=== PATIENT | female | born 1935 | race Caucasian/White ===

== ENCOUNTER 2023-06-10 14:43 | Observation (INO) | payer OTHER, SELFPAY ==
[2023-06-10] VITALS (29 sets, daily range): BP systolic 119–172; BP diastolic 53–86; PULSE 38–84; RESP 12–27; TEMP 35.8–36.4; O2SAT 92–98; BMI 37.2
--- NOTE | 2023-06-10 14:56 | DI.RAD.S_ITS ---
PROCEDURE: XR CHEST 1V INDICATIONS: chest pain TECHNIQUE: One view of the chest was acquired. COMPARISON: None. FINDINGS: Surgical changes and devices: None. Lungs and pleura: Retrocardiac opacity. No pleural effusions or pneumothorax. Mediastinum: Soft tissue prominence within the superior left mediastinum near the aortic pulmonary window. Heart size is normal. Bones and chest wall: No suspicious bony lesions. Overlying soft tissues appear unremarkable. IMPRESSION: 1. Retrocardiac opacity may reflect hiatal hernia with infection not excluded. 2. Prominence of the left hilar structures is concerning for mass versus lymphadenopathy. Consider CT. Dictated by: Dougie Sandoval M.D. on 06/10/2023 at 14:30 Approved by: Dougie Sandoval M.D. on 06/10/2023 at 14:32
[2023-06-10 15:14] LABS: Add Manual Diff / Slide Review NO; Basophils Absolute Auto 100 /uL (0-100); Basophils Percent Auto 0.9 % (0-2); Eosinophils Absolute Auto 200 /uL (0-450); Eosinophils Percent Auto 2.5 % (2-4); Hematocrit 33.6 % (36-46); Hemoglobin 11.1 g/dL (12.0-16.0); Lymphocytes Absolute Auto 1800 /uL (1100-4500); Lymphocytes Percent Auto 28.7 % (25-40); Mean Corpuscular Hemoglobin 31.9 PG (26-34); Mean Corpuscular Volume 96.7 fL (80-100); Monocytes Absolute Auto 600 /uL (0-900); Monocytes Percent Auto 10.3 % (3-14); Neutrophils Absolute Auto 3600 /uL (1500-7000); Neutrophils Percent Auto 57.6 % (50-75); Platelet Count 120 X10^3/uL (150-400); Red Blood Cell Count 3.48 X10^6/uL (4.0-5.2); Red Cell Distribution Width 16.3 % (11.6-14.8); White Blood Cell Count 6.3 X10^3/uL (4.5-11.0)
[2023-06-10 15:22] LABS: INR 1.1 (0.9-1.3); Prothrombin Time 12.4 SECONDS (10.1-12.7)
[2023-06-10 15:25] LABS: PTT Partial Thromboplastin Tim 45 SECONDS (26-36)
[2023-06-10 15:28] LABS: Alanine Aminotransferase 45 IU/L (<35); Albumin 3.8 g/dL (3.5-5.0); Albumin Globulin Ratio 1.1 (1.0-2.8); Alkaline Phosphatase 159 U/L (38-126); Aspartate Aminotransferase 49 IU/L (14-36); BUN Creatinine Ratio 42.5 (6-22); Bilirubin Total 0.3 mg/dL (0.2-1.3); Blood Urea Nitrogen 51 mg/dL (7-17); Carbon Dioxide 35 mmol/L (22-32); Chloride 99 mmol/L (98-107); Creatine Kinase 36 U/L (30-135); Estimated Glomerular Filt Rate 44 mL/min (>60); Globulin 3.4 g/dL (1.7-4.1); Glucose 115 mg/dL (80-110); HEMOLYSIS < 15 (0-50); Lipase 91 U/L (23-300); Magnesium 2.1 mg/dL (1.6-2.3); Potassium 3.9 mmol/L (3.4-5.1); Sodium 141 mmol/L (137-145); Total Protein 7.2 g/dL (6.3-8.2)
[2023-06-10 15:42] LABS: Troponin I < 0.012 ng/mL (0.01-0.034)
--- NOTE | 2023-06-10 15:52 | PC.NURSE ---
Pt reports sudden onset of left rib pain, which has resolved. Provider to be made aware.
--- NOTE | 2023-06-10 18:20 | ED.DIZZY ---
HPI - Dizziness General Chief Complaint: Dizziness Stated Complaint: vertigo Time Seen by Provider: 06/10/23 17:46 Source: patient and EMS Mode of arrival: EMS History of Present Illness HPI Narrative: Patient 87-year-old female history of hypertension, hyperlipidemia presenting today with dizziness. Some reports that she is been dizzy for awhile she is not passed out. She has chronic lower extremity edema she is on furosemide. She does not ambulate but gets around by wheelchair she can stand. Does not sound like she has passed out but is feeling weak. No numbness tingling or weakness she denies any chest pain or palpitations. She does take atenolol she is noted to be bradycardic upon arrival with heart rate in the low 40s. She denies any fever or chills. Son reports not feeling well for about the last week he reports that she is typically able to stand transfer and do some things. He is away an [id number] spoke to her on the phone today thought that she was having some slurring of speech. He is coming home, Related Data Home Medications Medication Instructions Recorded Confirmed allopurinol 100 mg tablet 100 mg PO DAILY 06/10/23 06/10/23 aspirin 81 mg capsule 81 mg PO DAILY 06/10/23 06/10/23 atenolol 100 mg tablet 100 mg PO DAILY 06/10/23 06/10/23 atorvastatin 40 mg tablet 40 mg PO DAILY 06/10/23 06/10/23 furosemide 20 mg tablet 20 mg PO DAILY 06/10/23 06/10/23 furosemide 40 mg tablet 40 mg PO DAILY 06/10/23 06/10/23 Allergies Allergy/AdvReac Type Severity Reaction Status Date / Time colchicine Allergy Verified 06/10/23 15:02 NSAIDS (Non-Steroidal Allergy Verified 06/10/23 15:02 Anti-Inflamma Patient History Social History household members: other Smoking Status: Never smoker alcohol intake: never Smoking Status: Never smoker alcohol intake frequency: 0-2 drinks per day Substance Use Type: does not use Exam Initial Vital Signs Initial Vital Signs: Vital Signs Pulse Rate 50 L 06/10/23 14:49 Pulse Oximetry 96 06/10/23 14:49 GENERAL: Alert pleasant 87-year-old female HEENT: Head atraumatic,EOMI, pupils reactive, face symmetric, moist mucous membranes CARDIOVASCULAR: Regular rate and rhythm without murmurs, rubs or gallops. RESPIRATORY: Breath sounds equal bilaterally, no wheezes rales or rhonchi. ABDOMEN: Soft, nontender. Normoactive bowel sounds all 4 quadrants. No guarding or rebound. EXTREMITIES: Normal range of motion, no clubbing. Chronic lower extremity edema with lymphedema minimal erythema NEUROLOGICAL: Alert and oriented x4.Normal gait and speech. Cranial nerves II through XII grossly intact. Good [id number], good [id number], strength equal bilaterally, no dysarthria or aphasia, sensation in tact to soft touch bilaterally, no visual changes, no facial droop SKIN: Warm, dry, no laceration, no petechiae, no rashes or lesions. Scores NIH Stroke Scale Level of Conciousness: Alert, keenly responsive Ask month/age: Answers both questions correctly. Open/close eyes, close hand: Performs both tasks correctly Best gaze horizontal: Normal Visual brambila: No visual loss Facial palsy: Normal symetrical movement Left arm drift: No drift for full 10 sec Right arm drift: No drift for full 10 sec Left leg drift: No drift for full 5 sec Right leg drift: No drift for full 5 sec Limb ataxia: Absent Sensory on face/arms/legs: Normal, no sensory loss Best language: No aphasia, normal Dysarthria: Normal Extinction or inattention: No abnormality Total NIH Stroke scale score: 0 Course Orders Ordered: ED Orders 06/10/23 18:34 CT chest w con Stat CT head/brain wo con Stat 06/10/23 21:10 Education, smoking cessation ONGOING 06/10/23 21:13 Consult to Discharge Planning Routine 06/11/23 19:00 Basic Metabolic Panel DAILY Magnesium DAILY 06/12/23 19:00 Basic Metabolic Panel DAILY Magnesium DAILY 06/13/23 19:00 Basic Metabolic Panel DAILY Magnesium DAILY Acetaminophen (Acetaminophen 325 Mg Tablet) 650 mg PO Q6H PRN PRN Reason: Fever/Mild Pain (1-3) Albuterol (Albuterol 2.5 Mg/3 Ml Neb (Adult)) 2.5 mg INH [id number] PRN PRN Reason: Dyspnea Allopurinol (Allopurinol 100 Mg Tablet) 100 mg PO DAILY [facility] Aspirin (Aspirin Ec 81 Mg Tablet) 81 mg PO DAILY [facility] Atorvastatin Calcium (Atorvastatin 20 Mg Tablet) 40 mg PO DAILY [facility] Bisacodyl (Bisacodyl 5 Mg Tablet) 10 mg PO DAILY PRN PRN Reason: Constipation Furosemide (Furosemide 20 Mg Tablet) 20 mg PO DAILY [facility] Hydralazine HCl (Hydralazine 25 Mg Tablet) 25 mg PO Q6HR PRN PRN Reason: Hypertension Naloxone HCl (Naloxone 0.4 Mg/Ml Vial) 0.2 mg IV Q2MIN PRN PRN Reason: Opiate Reversal Nitroglycerin (Nitroglycerin 0.4 Mg Sl Tab) 0.4 mg SL [id number] PRN PRN Reason: Chest Pain Ondansetron HCl (Ondansetron 4 Mg/2 Ml Inj) 4 mg IV Q8HR PRN PRN Reason: Nausea And Vomiting Discontinued Medications Aspirin (Aspirin 81 Mg Chew Tab) 324 mg PO NOW ONE Stop: 06/10/23 14:57 Last Admin: 06/10/23 15:21 Dose: Not Given Documented By: SB Vital Signs Vital signs: Vital Signs - 8 hr 06/10/23 17:30 06/10/23 17:31 06/10/23 17:31 Pulse Rate 84 43 L Respiratory Rate 19 Blood Pressure 141/66 H Pulse Oximetry 95 96 Oxygen Delivery Method Room Air 06/10/23 18:00 06/10/23 18:01 06/10/23 18:01 Pulse Rate 47 L 38 L Respiratory Rate 22 18 Blood Pressure 151/65 H Pulse Oximetry 96 95 Oxygen Delivery Method 06/10/23 18:30 06/10/23 18:58 06/10/23 18:58 Pulse Rate 52 L 47 L Respiratory Rate 20 Blood Pressure 119/59 L Pulse Oximetry 94 92 Oxygen Delivery Method 06/10/23 19:00 06/10/23 19:01 06/10/23 19:01 Pulse Rate 44 L 41 L Respiratory Rate Blood Pressure 136/62 Pulse Oximetry 94 92 Oxygen Delivery Method Room Air 06/10/23 19:44 06/10/23 19:45 06/10/23 19:45 Pulse Rate 52 L 51 L Respiratory Rate Blood Pressure 120/72 Pulse Oximetry 96 95 Oxygen Delivery Method 06/10/23 20:00 06/10/23 20:01 06/10/23 20:01 Pulse Rate 53 L 53 L Respiratory Rate Blood Pressure 134/73 Pulse Oximetry 94 92 Oxygen Delivery Method 06/10/23 20:30 06/10/23 20:30 06/10/23 21:00 Pulse Rate 46 L 49 L Respiratory Rate 18 Blood Pressure 135/63 Pulse Oximetry 92 94 Oxygen Delivery Method 06/10/23 21:01 06/10/23 21:01 Pulse Rate 47 L Respiratory Rate Blood Pressure 172/69 H Pulse Oximetry 93 Oxygen Delivery Method Room Air MDM - Dizziness Lab Data 06/10/23 15:05 06/10/23 15:05 Labs: Lab Results 06/10/23 Range/Units 15:05 WBC 6.3 (4.5-11.0) X10^3/uL RBC 3.48 L (4.0-5.2) X10^6/uL Hgb 11.1 L (12.0-16.0) g/dL Hct 33.6 L (36-46) % MCV 96.7 (80-100) fL MCH 31.9 (26-34) PG MCHC 33.0 (30-36) % RDW 16.3 H (11.6-14.8) % Plt Count 120 L (150-400) X10^3/uL Neut % (Auto) 57.6 (50-75) % Lymph % (Auto) 28.7 (25-40) % [place] % (Auto) 10.3 (3-14) % Eos % (Auto) 2.5 (2-4) % Baso % (Auto) 0.9 (0-2) % Neut # (Auto) 3600 (7423-9285) /uL Lymph # (Auto) 1800 (4116-7686) /uL [place] # (Auto) 600 (0-900) /uL Eos # (Auto) 200 (0-450) /uL Baso # (Auto) 100 (0-100) /uL PT 12.4 (10.1-12.7) SECONDS INR 1.1 (0.9-1.3) APTT 45 H (26-36) SECONDS Sodium 141 (137-145) mmol/L Potassium 3.9 (3.4-5.1) mmol/L Chloride 99 (98-107) mmol/L Carbon Dioxide 35 H (22-32) mmol/L BUN 51 H (7-17) mg/dL Creatinine 1.20 H (0.52-1.04) mg/dL Estimated GFR 44 L (>60) mL/min BUN/Creatinine Ratio 42.5 H (6-22) Glucose 115 H (80-110) mg/dL Calcium 10.0 (8.4-10.2) mg/dL Magnesium 2.1 (1.6-2.3) mg/dL Total Bilirubin 0.3 (0.2-1.3) mg/dL AST 49 H (14-36) IU/L ALT 45 H (<35) IU/L Alkaline Phosphatase 159 H (38-126) U/L Total Creatine Kinase 36 (30-135) U/L Troponin I < 0.012 (0.01-0.034) ng/mL NT-Pro-B Natriuret Pep 279 (<450) pg/mL Total Protein 7.2 (6.3-8.2) g/dL Albumin 3.8 (3.5-5.0) g/dL Globulin 3.4 (1.7-4.1) g/dL Albumin/Globulin Ratio 1.1 (1.0-2.8) Lipase 91 (23-300) U/L Imaging Data Chest x-ray: Radiologist's Impression: PROCEDURE: XR CHEST 1V INDICATIONS: chest pain TECHNIQUE: One view of the chest was acquired. COMPARISON: None. FINDINGS: Surgical changes and devices: None. Lungs and pleura: Retrocardiac opacity. No pleural effusions or pneumothorax. Mediastinum: Soft tissue prominence within the superior left mediastinum near the aortic pulmonary window. Heart size is normal. Bones and chest wall: No suspicious bony lesions. Overlying soft tissues appear unremarkable. IMPRESSION: 1. Retrocardiac opacity may reflect hiatal hernia with infection not excluded. 2. Prominence of the left hilar structures is concerning for mass versus lymphadenopathy. Consider CT. Dictated by: Dougie Sandoval M.D. on 06/10/2023 at 14:30 CT scan - head: Radiologist's Impression: PROCEDURE: CT HEAD/BRAIN WO CON INDICATIONS: dizzy TECHNIQUE: Noncontrast 4.5 mm thick angled axial sections acquired from the foramen magnum to the vertex, with coronal and sagittal reformats. For radiation dose reduction, the following was used: automated exposure control, adjustment of mA and/or kV according to patient size. COMPARISON: None. FINDINGS: Image quality: Excellent. CSF spaces: Basal cisterns are patent. No extra-axial fluid collections. The ventricles are symmetric in size and shape. Brain: No intracranial bleeds or masses. There is cerebral volume loss for age, with resultant ventricular and sulcal prominence. There are periventricular and deep white matter chronic small vessel ischemic changes. There is intracranial internal carotid artery atherosclerosis. Remote right lacunar infarct. Skull and face: Calvarium and visualized facial bones appear intact, without suspicious lesions. Sinuses: Visualized sinuses and mastoids are clear. IMPRESSION: No acute intracranial pathology. Dictated by: Ramirez Orta M.D. on 06/10/2023 at 20:00 CT scan - chest: Radiologist's Impression: PROCEDURE: CT CHEST W CON INDICATIONS: Questionable mass with dizziness TECHNIQUE: After the administration of intravenous contrast, 5 mm thick sections acquired from the pulmonary apices to the posterior costophrenic angles. 1 mm axial lung, 5 mm thick coronal and sagittal reformats and 7 mm axial MIP were acquired. For radiation dose reduction, the following was used: automated exposure control, adjustment of mA and/or kV according to patient size. COMPARISON: [facility], CR, XR CHEST 1 VIEW, 12/01/2020, 21:16. [facility], CR, XR CHEST 1V, 06/10/2023, 15:06. FINDINGS: Image quality: Excellent. Lungs and pleura: No acute air space opacities. There is a 0.9 cm subpleural density in the low, likely atelectasis. No pleural effusions or pneumothorax. Central and peripheral airways are patent and normal in caliber. Mediastinum: The central pulmonary outflow tract is enlarged measuring 4.1 cm. No left hilar mass. Heart size is normal. No pericardial effusion. There is moderate coronary artery atherosclerosis. Note is made of mitral annular calcification. No mediastinal or hilar adenopathy by size criteria. Thoracic aorta and central pulmonary arteries are normal in size. Esophagus is normal in caliber. There is a moderate to large sized hiatal hernia. Bones and chest wall: No suspicious bony lesions. No vertebral body compression fractures. No axillary or supraclavicular adenopathy by size criteria. Thyroid gland is unremarkable . Abdomen: A 1.3 cm hypodense nodule is noted in the anterior aspect of the segment IV. IMPRESSION: 1. No left hilar mass. 2. Enlargement of pulmonary outflow tract is likely secondary to left hilar prominence seen on chest x-ray. The findings suggest pulmonary hypertension. 3. Moderate coronary artery atherosclerosis. 4. A 3.9 cm subpleural nodule in lingula, most likely caused by atelectasis. Consider a short-term follow-up CT in 3 months. 5. A sbtasgki-le-tcgga sized hiatal hernia. 6. A 1.3 cm hypodense nodule in segment IV of liver, probably a cyst. Dictated by: Orlando Flores M.D. on 06/10/2023 at 20:00 ECG Data Interpretation: Sinus bradycardia rate 44 CA interval 256 QRS [address] changes Q-wave noted in lead 3 no priors to compare MDM Narrative Medical decision making narrative: Patient 87-year-old female presenting with ongoing dizziness to be slightly bradycardic with PVCs no focal deficits. She is on atenolol which could be causing some bradycardia she is a first-degree AV block without prior EKGs. Chest x-ray does show some abnormality with questionable mass versus lymphadenopathy. She has no focal deficits but due to ongoing vertigo and have CT ordered. Blood work renal function is abnormal with a creatinine of 1.2 BUN 51 CO2 35. Son reports stage 4 kidney disease unclear what baseline labs are. Head CT negative for mass or hemorrhage. CT chest shows a hiatal hernia Patient does have episodes or heart rate does drop into the 30s however her heart rate is pretty consistently in the low 40s which is likely contributing to her vertigo. She has symptomatic bradycardia likely secondary to beta-radha. Discussed case with hospitalist Dr. Velez in regards to observation which he kindly accepts Discharge Plan Departure Patient Disposition: Admitted as Observation Clinical Impression: Symptomatic bradycardia Admit Date/Time: 06/10/23 21:19 Admit Provider: Toby Velez
--- NOTE | 2023-06-10 18:22 | PC.NURSE ---
This RN talks to son, Adrian, with patient permission. Per son mother does not have a history of dizziness, except for in the past few weeks. Per son they have noticed some recent decline in memory. Pt normally uses scooter to get around due to bilateral edema of legs. Per son patient takes 40mg furosemide BID.
--- NOTE | 2023-06-10 18:34 | DI.CT.S_ITS ---
PROCEDURE: CT CHEST W CON INDICATIONS: Questionable mass with dizziness TECHNIQUE: After the administration of intravenous contrast, 5 mm thick sections acquired from the pulmonary apices to the posterior costophrenic angles. 1 mm axial lung, 5 mm thick coronal and sagittal reformats and 7 mm axial MIP were acquired. For radiation dose reduction, the following was used: automated exposure control, adjustment of mA and/or kV according to patient size. COMPARISON: [facility], CR, XR CHEST 1 VIEW, 12/01/2020, 21:16. [facility], CR, XR CHEST 1V, 06/10/2023, 15:06. FINDINGS: Image quality: Excellent. Lungs and pleura: No acute air space opacities. There is a 0.9 cm subpleural density in the low, likely atelectasis. No pleural effusions or pneumothorax. Central and peripheral airways are patent and normal in caliber. Mediastinum: The central pulmonary outflow tract is enlarged measuring 4.1 cm. No left hilar mass. Heart size is normal. No pericardial effusion. There is moderate coronary artery atherosclerosis. Note is made of mitral annular calcification. No mediastinal or hilar adenopathy by size criteria. Thoracic aorta and central pulmonary arteries are normal in size. Esophagus is normal in caliber. There is a moderate to large sized hiatal hernia. Bones and chest wall: No suspicious bony lesions. No vertebral body compression fractures. No axillary or supraclavicular adenopathy by size criteria. Thyroid gland is unremarkable . Abdomen: A 1.3 cm hypodense nodule is noted in the anterior aspect of the segment IV. IMPRESSION: 1. No left hilar mass. 2. Enlargement of pulmonary outflow tract is likely secondary to left hilar prominence seen on chest x-ray. The findings suggest pulmonary hypertension. 3. Moderate coronary artery atherosclerosis. 4. A 3.9 cm subpleural nodule in lingula, most likely caused by atelectasis. Consider a short-term follow-up CT in 3 months. 5. A ukqgzkln-[id number] sized hiatal hernia. 6. A 1.3 cm hypodense nodule in segment IV of liver, probably a cyst. Dictated by: Orlando Flores M.D. on 06/10/2023 at 20:00 Approved by: Orlando Flores M.D. on 06/10/2023 at 20:08
--- NOTE | 2023-06-10 18:34 | DI.CT.S_ITS ---
PROCEDURE: CT HEAD/BRAIN WO CON INDICATIONS: dizzy TECHNIQUE: Noncontrast 4.5 mm thick angled axial sections acquired from the foramen magnum to the vertex, with coronal and sagittal reformats. For radiation dose reduction, the following was used: automated exposure control, adjustment of mA and/or kV according to patient size. COMPARISON: None. FINDINGS: Image quality: Excellent. CSF spaces: Basal cisterns are patent. No extra-axial fluid collections. The ventricles are symmetric in size and shape. Brain: No intracranial bleeds or masses. There is cerebral volume loss for age, with resultant ventricular and sulcal prominence. There are periventricular and deep white matter chronic small vessel ischemic changes. There is intracranial internal carotid artery atherosclerosis. Remote right lacunar infarct. Skull and face: Calvarium and visualized facial bones appear intact, without suspicious lesions. Sinuses: Visualized sinuses and mastoids are clear. IMPRESSION: No acute intracranial pathology. Dictated by: Ramirez Orta M.D. on 06/10/2023 at 20:00 Approved by: Ramirez Orta M.D. on 06/10/2023 at 20:01
[2023-06-10 18:56] LABS: NT-proBNP (BNP-Adult 18+) 279 pg/mL (<450)
--- NOTE | 2023-06-10 23:52 | P.HP_ITS ---
History of Present Illness History of Present Illness Chief complaint: vertigo Narrative: 87 years old female with history of hypertension, hyperlipidemia, CAD, CKD, presents to the ER with dizziness and near syncope. She also reports feeling weak. Yesterday the patient missed her medications and took double dose of her home medications this morning. Denies any chest pain, shortness of breath, cough, fever, nausea, vomiting, abdominal pain, diarrhea or dysuria. In the ER she was found to have heart rates around 40s. Her initial labs shows WBC 6.3, creatinine 1.2, blood sugar 115, troponin normal, BNP 279, CT of the head unremarkable and CT of the chest no acute changes. EKG shows bradycardia with first-degree AV block. [facility] Social History household members: other Smoking Status: Never smoker alcohol intake: never Meds Home Medications and Allergies Home Medications Medication Instructions Recorded Confirmed Type allopurinol 100 mg tablet 100 mg PO DAILY 06/10/23 06/10/23 History aspirin 81 mg capsule 81 mg PO DAILY 06/10/23 06/10/23 History atenolol 100 mg tablet 100 mg PO DAILY 06/10/23 06/10/23 History atorvastatin 40 mg tablet 40 mg PO DAILY 06/10/23 06/10/23 History furosemide 20 mg tablet 20 mg PO DAILY 06/10/23 06/10/23 History furosemide 40 mg tablet 40 mg PO DAILY 06/10/23 06/10/23 History Allergies Allergy/AdvReac Type Severity Reaction Status Date / Time colchicine Allergy Verified 06/10/23 15:02 NSAIDS (Non-Steroidal Allergy Verified 06/10/23 15:02 Anti-Inflamma Review of Systems Review of Systems ROS: Yes All systems reviewed with the patient and are negative except as otherwise documented Constitutional Constitutional: Reports as per HPI and Reports system reviewed and no additional complaints, except as documented Eyes Eyes: Reports as per HPI and Reports system reviewed and no additional complaints, except as documented ENT Ears, Nose, Mouth, and Throat: Yes as per HPI and Yes system reviewed and no additional complaints, except as documented Cardiovascular Cardiovascular: Reports system reviewed and no additional complaints, except as documented Respiratory Respiratory: Reports system reviewed and no additional complaints, except as documented Gastrointestinal Gastrointestinal: Reports system reviewed and no additional complaints, except as documented Genitourinary Genitourinary: Reports system reviewed and no additional complaints, except as documented Musculoskeletal Musculoskeletal: Reports system reviewed and no additional complaints, except as documented, Reports abnormal gait and Reports numbness Neurologic Neurologic: Reports system reviewed and no additional complaints, except as documented, Reports abnormal gait, Reports confusion and Reports numbness Psychiatric Psychiatric: Reports system reviewed and no additional complaints, except as documented and Reports confusion Exam Vital Signs (past 8 hours): - 06/10/23 16:00 06/10/23 16:04 06/10/23 16:04 Temperature Pulse Rate 55 L 38 L Respiratory Rate 20 Blood Pressure 119/86 Pulse Oximetry 95 95 Oxygen Delivery Method Oxygen Flow Rate 06/10/23 16:30 06/10/23 16:30 06/10/23 16:33 Temperature Pulse Rate 72 Respiratory Rate 12 Blood Pressure 137/65 147/65 H Pulse Oximetry 96 Oxygen Delivery Method Oxygen Flow Rate 06/10/23 16:33 06/10/23 17:00 06/10/23 17:00 Temperature Pulse Rate 44 L 44 L Respiratory Rate 23 27 H Blood Pressure 162/69 H Pulse Oximetry 97 96 Oxygen Delivery Method Room Air Room Air Oxygen Flow Rate 06/10/23 17:30 06/10/23 17:31 06/10/23 17:31 Temperature Pulse Rate 84 43 L Respiratory Rate 19 Blood Pressure 141/66 H Pulse Oximetry 95 96 Oxygen Delivery Method Room Air Oxygen Flow Rate 06/10/23 18:00 06/10/23 18:01 06/10/23 18:01 Temperature Pulse Rate 47 L 38 L Respiratory Rate 22 18 Blood Pressure 151/65 H Pulse Oximetry 96 95 Oxygen Delivery Method Oxygen Flow Rate 06/10/23 18:30 06/10/23 18:58 06/10/23 18:58 Temperature Pulse Rate 52 L 47 L Respiratory Rate 20 Blood Pressure 119/59 L Pulse Oximetry 94 92 Oxygen Delivery Method Oxygen Flow Rate 06/10/23 19:00 06/10/23 19:01 06/10/23 19:01 Temperature Pulse Rate 44 L 41 L Respiratory Rate Blood Pressure 136/62 Pulse Oximetry 94 92 Oxygen Delivery Method Room Air Oxygen Flow Rate 06/10/23 19:44 06/10/23 19:45 06/10/23 19:45 Temperature Pulse Rate 52 L 51 L Respiratory Rate Blood Pressure 120/72 Pulse Oximetry 96 95 Oxygen Delivery Method Oxygen Flow Rate 06/10/23 20:00 06/10/23 20:01 06/10/23 20:01 Temperature Pulse Rate 53 L 53 L Respiratory Rate Blood Pressure 134/73 Pulse Oximetry 94 92 Oxygen Delivery Method Oxygen Flow Rate 06/10/23 20:30 06/10/23 20:30 06/10/23 21:00 Temperature Pulse Rate 46 L 49 L Respiratory Rate 18 Blood Pressure 135/63 Pulse Oximetry 92 94 Oxygen Delivery Method Oxygen Flow Rate 06/10/23 21:01 06/10/23 21:01 06/10/23 21:30 Temperature Pulse Rate 47 L 49 L Respiratory Rate 19 Blood Pressure 172/69 H Pulse Oximetry 93 92 Oxygen Delivery Method Room Air Oxygen Flow Rate 06/10/23 21:31 06/10/23 21:31 06/10/23 22:55 Temperature 96.5 F L Pulse Rate 48 L 51 L Respiratory Rate 18 16 Blood Pressure 155/70 H 144/53 H Pulse Oximetry 94 94 Oxygen Delivery Method Room Air Oxygen Flow Rate 0 Oxygen Delivery Method Room Air Oxygen Flow Rate 0 Const General: cooperative, comfortable and well developed Orientation: alert and oriented x3 HENHI Head: normal to inspection, normocephalic and atraumatic Face and sinus: normal facial exam Mouth: oral mucosae normal and moist mucous membranes Throat: posterior oropharynx normal Eyes General: appearance normal, both eyes and all related structures Pupils: PERRL EOM: EOM intact bilaterally Neck Neck: normal visual inspection and full ROM Chest Chest: normal inspection of the chest Resp Effort & Inspection: normal respiratory effort and able to speak in complete sentences Auscultation: clear to auscultation bilaterally Cardio Palpation: normal PMI Rate: regular rate Rhythm: regular rhythm Heart Sounds: S1 normal and S2 normal GI Inspection: normal to inspection Palpation: soft and no hepatosplenomegaly Auscultation: normal bowel sounds Skin General: no rashes or lesions noted Lesions: no lesions Rashes: no rashes Trauma: no lacerations or abrasions Neuro General: patient alert, patient awake, patient oriented x3 and no focal motor deficits Cranial Nerves: CN's II-XI intact bilaterally Cognition: normal cognition Speech: speech normal Gait: normal gait Motor: muscle tone normal throughout Sensory Exam: no sensory deficits noted Extrem General: full ROM and no calf tenderness Psych Appearance: grossly normal Mental Status: mental status grossly normal Speech and Movement: speech and movement normal Objective Labs 10/29/23 15:05 06/10/23 15:05 Labs: Laboratory Results - last 24 hr 06/10/23 15:05 WBC 6.3 RBC 3.48 L Hgb 11.1 L Hct 33.6 L MCV 96.7 MCH 31.9 MCHC 33.0 RDW 16.3 H Plt Count 120 L Neut % (Auto) 57.6 Lymph % (Auto) 28.7 [place] % (Auto) 10.3 Eos % (Auto) 2.5 Baso % (Auto) 0.9 Neut # (Auto) 3600 Lymph # (Auto) 1800 [place] # (Auto) 600 Eos # (Auto) 200 Baso # (Auto) 100 PT 12.4 INR 1.1 APTT 45 H Sodium 141 Potassium 3.9 Chloride 99 Carbon Dioxide 35 H BUN 51 H Creatinine 1.20 H Estimated GFR 44 L BUN/Creatinine Ratio 42.5 H Glucose 115 H Calcium 10.0 Magnesium 2.1 Total Bilirubin 0.3 AST 49 H ALT 45 H Alkaline Phosphatase 159 H Total Creatine Kinase 36 Troponin I < 0.012 NT-Pro-B Natriuret Pep 279 Total Protein 7.2 Albumin 3.8 Globulin 3.4 Albumin/Globulin Ratio 1.1 Lipase 91 Assessment & Plan Assessment and plan (1) Symptomatic bradycardia: Status: Acute Plan: Most likely doubling her dose of atenolol. Hold atenolol for now Telemetry, serial cardiac enzymes, Check TSH, (2) Hypertension: Status: Acute Plan: Hydralazine as needed (3) CKD (chronic kidney disease): Status: Acute Plan: Stable. BMP daily. Avoid potentially nephrotoxic medications. (4) Hyperlipidemia: Status: Acute Plan: Restart Lipitor (5) CAD (coronary artery disease): Status: Acute Plan: Restart aspirin, statin Nitroglycerin as needed Telemetry Time Spent With Patient Time with patient: 50 to 69 minutes with 50% spent counseling/coordinating care Quality VTE Deep Vein Thrombosis/Pulmonary Embolism Present on Admission: No MIPS - Admit I confirm the patient?s Advance Care Plan is present, Code status is documented, Surrogate decision maker is in patient?s record [If Yes, STOP here]: Yes MIPS - Meds 'Current medications' to include all prescriptions, [id number] products, herbals, cannabis/cannabidiol products, and vitamin/mineral/dietary (nutritional) supplements. I have utilized all available resources to obtain, update, or review the patient?s current medications. [If Yes, STOP here]: Yes
[2023-06-11 04:00] VITALS: BP 120/47; PULSE 51; RESP 16; TEMP 36; O2SAT 93
[2023-06-11 05:13] LABS: Thyroid Stimulating Hormone 3.01 uIU/mL (0.47-4.68)
[2023-06-11 08:00] VITALS: BP 105/34; PULSE 66; RESP 18; O2SAT 93
[2023-06-11] MEDS: ATORVASTATIN 20 MG TABLET 40 MG PO (08:10)
[2023-06-11] MEDS: allopurinoL 100 MG TABLET PO (08:10)
[2023-06-11] MEDS: ASPIRIN EC 81 MG TABLET PO (08:10)
[2023-06-11 11:30] VITALS: BP 108/83; BP 109/41; PULSE 47; PULSE 54
[2023-06-11 12:00] VITALS: BP 108/83; PULSE 54
--- NOTE | 2023-06-11 12:22 | PT.IIE ---
Current Diagnoses Hyperlipidemia, unspecified (06/10/23) Essential (primary) hypertension (06/10/23) Atherosclerotic heart disease of [place] coronary artery without angina pectoris (06/10/23) Chronic kidney disease, unspecified (06/10/23) Bradycardia, unspecified (06/10/23) Physical Therapy Inpatient Evaluation/Re-Eval M1 PT/OT-IP Prior Functional Status Start: 06/11/23 10:21 Freq: NEEDED Status: Active Protocol: Document 06/11/23 12:22 AW (Rec: 06/11/23 13:22 AW [id number]) Medical Review Prior Functional Status Medical History Reviewed Yes Communication Pt is able to make her needs known. Mobility and Gait Limited mobility at baseline secondary to BLE edema. Pt is able to pivot transfer on her own from bed to commode or scooter. Activities of Daily Living and IADL's Pt states she needs 2-person assist for showers. Since her facility is short staffed, she has been getting sponge baths . She is able to dress herself in simple clothes. She does not have socks that fit her feet. She gets meals delivered and is able to feed herself. Her son helps to organize her meds but she takes them on her own. Social History Household Members other Living Arrangements Assisted Living Number of Floors (Floors) One Floor Number of Stairs To Enter/Railing? No stairs Home Environment Walk in Shower Home Equipment Shower Seat with Backrest,Grab Bars In Shower Additional Social History Comment Pt resides at [facility] in [place]. Pt's supportive son lives on [facility]. M2 PT-IP Current Condition Start: 06/11/23 10:21 Freq: NEEDED Status: Active Protocol: Document 06/11/23 12:22 AW (Rec: 06/11/23 13:22 AW [id number]) Physical Therapy Current Condition Current Condition Evaluation Date 06/11/23 Treatment Diagnosis symptomatic bradycardia; syncope; impaired mobility Onset Date 06/09/23 M3 PT-IP Subjective Start: 06/11/23 10:21 Freq: NEEDED Status: Active Protocol: Document 06/11/23 12:22 AW (Rec: 06/11/23 13:22 AW [id number]) Subjective Physical Therapy Visit Type Type Initial Evaluation Visit Start Time 11:36 Visit Stop Time 12:22 Total Visit Minutes 46 Physical Therapy Visit Comments Patient Comments Pt is willing to participate with PT M4 PT-IP Mobility and Gait Start: 06/11/23 10:21 Freq: NEEDED Status: Active Protocol: Document 06/11/23 12:22 AW (Rec: 06/11/23 13:22 AW [id number]) PT-Bed Mobility Assessment Rolling Level of Assist Minimal Assistance Supine to Sit Supine to Sit Maximum Assistance,1 Person Assistance Sit to Supine Sit to Supine Maximum Assistance,1 Person Assistance,2 Person Assistance Scooting Scooting to Edge of Bed Maximum Assistance Scooting Up and Down in Bed Maximum Assistance PT-Transfer Assessment Sit to and From Stand Sit to and from Stand Moderate Assistance,1 Person Assistance,Use of Upper Extremities Equipment Transfer Assistive Device Gait Belt Transfers Transfer Destination Bed,Bedside Commode Transfer Technique Stand Pivot Transfer Ability Level of Assist Moderate Assistance,1 Person Assistance,2 Person Assistance ,Use of Upper Extremities Comments Mobility Comments Supine BP 109/41 HR 47. Pt needs max assist for supine to sit transfer. Pt explains her typical transfer technique. In order to get to the commode , pt asks for recliner to be set up directly in front of her and BSC set up 90 degrees to her left. She leans forward from the bed and does not quite stand fully while supporting herself on the recliner. She turns 90 degrees with mod assist x 1-2 people for safety. Pt voids and manages pericare independently . She then needs min to mod assist for return transfer to the bed. Gait Assessment Comments Gait Comments Not ambulatory at baseline. Does not use a walker to transfer. PT-Balance Assessment Sitting Balance and Reactions Static Sitting Balance Ability Good Dynamic Sitting Balance Ability Fair Standing Balance and Reactions Static Standing Balance Ability Poor Dynamic Standing Balance Ability Poor M5 PT-IP Objective Assessments Start: 06/11/23 10:21 Freq: NEEDED Status: Active Protocol: Document 06/11/23 12:22 AW (Rec: 06/11/23 13:22 AW [id number]) Orientation Orientation/Cognition Level of Alertness Alert Orientation Name,Place,Situation Gross Range of Motion Upper Extremity ROM Assessment Right Impaired Impairments History of proximal humerus fracture, limited ROM into elevation. Lower Extremity ROM Assessment Bilaterally Impaired Impairments Edema limits knee and ankle ROM. Strength Lower Extremity Strength Assessment Bilaterally Impaired Hip 2+/5 Knee 3-/5 Ankle 3-/5 Sensation Assessment Sensation Gross Sensation Right LE Impaired,Left LE Impaired Light Touch Impaired M7 PT-IP Assessment and Plan Start: 06/11/23 10:21 Freq: NEEDED Status: Active Protocol: Document 06/11/23 12:22 AW (Rec: 06/11/23 13:22 AW [id number]) PT Summary Assessment and Plan Potential Rehabilitation Potential Fair Status of Condition at Evaluation Evolving Summary Impairments ROM,Strength,Balance,Sensation ,Cognition,Bed Mobility, Transfers,Gait Assessment Summary Kayleigh is an 87 yo woman seen for PT evaluation while admitted with symptomatic bradycardia and near syncope. PMH includes CAD, HTN, HLD, and CKD. Chart review reveals concern for memory loss. PLOF: Pt resides at an assisted living called [facility] in [place]. She is independent with stand pivot transfers at baseline and reports ability to transfer from bed to scooter or commode . Pt is not ambulatory. She gets assists with showers. Her son organizes her medications but she then takes them without any additional oversight. CLOF: Pt presents with BLE strength deficits as noted in objective findings. Vestibular screen is WNL. Pt is requiring up to 2-person mod assist for transfers and presents as a high falls risk. She is likely marginal for assisted living and may benefit from consideration of supervisor intermediates care for greater assistance in managing her chronic conditions. At this time, PT recommends SNF for rehab services prior to returning to [facility]. Goals Bed Mobility Goal Contact Guard Assistance Transfer Goal Standby Assistance Days to Meet Goals 10 Frequency of Treatment Frequency Of Treatment Once a Day Treatment Plan Physical Therapy Treatment Plan Bed Mobility Training,Transfer Training,Gait Training, Therapeutic Exercise,Balance Retraining,Discharge Planning, Hot or Cold Pack,Neuromuscular Re-ed Recommendations To Nursing Amount of Assist Needed 2 Person Assist Discharge Recommendations PT Discharge Recommendations SNF Rehab Transportation Needs at Discharge Wheelchair/Cabulance
--- NOTE | 2023-06-11 12:32 | OT.IP.EVAL ---
Current Diagnoses Hyperlipidemia, unspecified (06/10/23) Essential (primary) hypertension (06/10/23) Atherosclerotic heart disease of [place] coronary artery without angina pectoris (06/10/23) Chronic kidney disease, unspecified (06/10/23) Bradycardia, unspecified (06/10/23) Occupational Therapy Inpatient Evaluation/Re-Eval M1 PT/OT-IP Prior Functional Status Start: 06/11/23 10:21 Freq: NEEDED Status: Active Protocol: Document 06/11/23 12:22 AW (Rec: 06/11/23 13:22 AW [id number]) Medical Review Prior Functional Status Medical History Reviewed Yes Communication Pt is able to make her needs known. Mobility and Gait Limited mobility at baseline secondary to BLE edema. Pt is able to pivot transfer on her own from bed to commode or scooter. Activities of Daily Living and IADL's Pt states she needs 2-person assist for showers. Since her facility is short staffed, she has been getting sponge baths . She is able to dress herself in simple clothes. She does not have socks that fit her feet. She gets meals delivered and is able to feed herself. Her son helps to organize her meds but she takes them on her own. Social History Household Members other Living Arrangements Assisted Living Number of Floors (Floors) One Floor Number of Stairs To Enter/Railing? No stairs Home Environment Walk in Shower Home Equipment Shower Seat with Backrest,Grab Bars In Shower Additional Social History Comment Pt resides at [facility] in [place]. Pt's supportive son lives on [facility]. M1 PT/OT-IP Prior Functional Status Start: 06/11/23 12:38 Freq: NEEDED Status: Active Protocol: Document 06/11/23 12:39 CGR (Rec: 06/11/23 13:36 CGR [id number]) Medical Review Prior Functional Status Medical History Reviewed Yes Communication Pt is an effective verbal communicator but slurs her words at times. Mobility and Gait Pt was able to transfer from her bed to her scooter, BSC, or chair with stand pivot. Pt does not ambulate. Activities of Daily Living and IADL's Pt was IND in dressing and simple ADLs. Pt has meals delivered. She can use the toilet and BSC without assist. Pt needs a 2 person assist for bathing. Social History Household Members other Living Arrangements Assisted Living Home Equipment Bedside Commode,Shower Seat with Backrest,Grab Bars Near Toilet,Grab Bars In Shower Employment Status Retired Additional Social History Comment Pt uses a scooter. M2 OT-IP Current Condition Start: 06/11/23 12:38 Freq: Status: Active Protocol: Document 06/11/23 12:39 CGR (Rec: 06/11/23 13:36 CGR [id number]) Occupational Therapy Current Condition Current Condition Evaluation Date 06/11/23 Treatment Diagnosis dizziness Diagnosis Onset Date 06/10/23 M3 OT- IP Subjective and Pain Start: 06/11/23 12:38 Freq: Status: Active Protocol: Document 06/11/23 12:39 CGR (Rec: 06/11/23 13:36 CGR [id number]) OT- Subjective Occupational Therapy Visit Type Type Initial Evaluation Visit Start Time 12:09 Visit Stop Time 12:32 Total Visit Minutes 23 Notes Partial co-treat with P.T. Per P.T. pt needed 2 person mod a . M4 OT- IP ADL's Start: 06/11/23 12:38 Freq: Status: Active Protocol: Document 06/11/23 12:39 CGR (Rec: 06/11/23 13:36 CGR [id number]) OT IBH-Faxd-Tkdzkkz General Evaluation Self-Feeding Ability Independent Comments OT Self-Feeding Comments seated in bed OT ADL-Grooming Comments OT Grooming Comments not performed OT ADL-Oral Care Comments Oral Care Comments not performed OT ADL-Dressing General Eval Upper Body Dressing Ability Total Assistance Areas Needing Assistance Underpants/Brief,Socks Comments OT Dressing Comments Pt needed assist with getting brief up after toileting. OT ADL-Toileting General Evaluation Toileting Ability Standby Assistance,Maximum Assistance Areas Needing Assistance Manage Clothing,Perform Perineal Hygiene Comments OT Toileting Comments sba for pericare and max a for clothing management OT ADL-Bathing Comments OT Bathing Comments not performed M5 OT- IP IADL's Start: 06/11/23 12:38 Freq: Status: Active Protocol: Document 06/11/23 12:39 CGR (Rec: 06/11/23 13:36 CGR [id number]) OT-Instrumental Activities of Daily Living Deficits IADL Deficits Identified Deficits Home Safety Awareness Awareness of Need for Assistance at Home Decreased Awareness Ability to Problem Solve Emergency Unable to Problem Solve Situations Medication Management Medication Management Comments Concerns regarding her ability to perform safely Money Management Money Management Comments Concerns regarding her ability to perform safely Meal Preparation Meal Preparation Caregiver Provides Assist Meal Preparation Comments pt has meals delivered Pipe Smoking Machine Operator Pipe Smoking Machine Operator Caregiver Provides Assist Driving Driving Comments Pt does not drive M6 OT- IP Functional Cognition Start: 06/11/23 12:38 Freq: Status: Active Protocol: Document 06/11/23 12:39 CGR (Rec: 06/11/23 13:36 CGR [id number]) Cognitive Factors Limiting Selfcare Function Cognitive Ability Level of Alertness Alert Patient Orientation Name,Age,Birthday,Month,Date, Year,Day of Week,Place, Situation Attention Span Ability Capable of Focused Attention, Capable of Sustained Attention Ability to Follow Commands Able to Follow One Step Commands with Increased Time, Able to Follow One Step Commands with Repetition Cognitive Comments Cognitive Assessment Comments Pt would benefit from a formal cog assessment at next visit OT- Vision and Hearing OT- Hearing Assessment OT- Hearing Assessment WFL OT- Vision Assessment Visual Acuity Glasses For Reading Visual Attentiveness WFL Occular Pursuits WFL Visual Convergence WFL M7 OT- IP Mobility and Balance Start: 06/11/23 12:38 Freq: Status: Active Protocol: Document 06/11/23 12:39 CGR (Rec: 06/11/23 13:36 CGR [id number]) OT- Bed Mobility Assessment Rolling Type of Rolling Roll to Right,Roll to Left Level of Assistance Standby Assistance Sit to Supine Sit to Supine Assist Maximum Assistance Scooting Scooting to Edge of Bed Maximum Assistance OT-Transfer Assessment Sit to and From Stand Sit to and from Stand Contact Guard Assistance, Moderate Assistance Transfers Transfer Ability Contact Guard Assistance, Moderate Assistance Technique Transfer Destination Bed,Bedside Commode Transfer Technique Stand Step Pivot Devices Transfer Assistive Devices Gait Belt,Front Wheeled Walker Comments Mobility Comments Pt transfered from be to C with mod x 2 but then CGA for transfer back to bed then max a for bed mobility. OT- Gait Assessment Comments Gait Ability Comments Pt does not ambulate at baseline. OT- Balance Assessment Sitting Balance and Reactions Static Sitting Balance Ability Good Dynamic Sitting Balance Ability Fair M8 OT- IP Objective Assessments Start: 06/11/23 12:38 Freq: Status: Active Protocol: Document 06/11/23 12:39 CGR (Rec: 06/11/23 13:36 CGR [id number]) OT Gross Range of Motion Upper Extremity Range of Motion Assessment Right Impaired ROM Impairments R shld limited mobility from a previous break OT Strength Upper Extremity Strength Assessment Bilaterally Impaired Comments Strength Comments R shld not tested but otherwise 3+/5 OT- Coordination Assessment Upper Extremity Finger to Nose Test Within Functional Limits Finger Tapping Test Within Functional Limits OT-Muscle Tone Assessment Muscle Tone WNL Yes OT Sensation Assessment Edema Edema Present Edema Comments PT has severe edema to BLE M9 OT- IP Assessment and Plan Start: 06/11/23 12:38 Freq: Status: Active Protocol: Document 06/11/23 12:39 CGR (Rec: 06/11/23 13:36 CGR [id number]) OT Summary Assessment and Plan Potential Rehabilitation Potential Good Analytic Complexity at Evaluation Moderate Summary OT Impairments Range of Motion,Strength, Balance,Functional Cognition, Functional Mobility,Grooming, Dressing,Toileting,Bathing, Toilet Transfers,Shower Transfers,Activity Tolerance Progress Towards Goals Slow Progress due to Activity Tolerance,Slow Progress due to Cognition Assessment Summary Pt presents as a moderate complexity evaluation s/p admit for dizziness. Pt will benefit from SNF upon discharge as she is requiring significant assist for mobility and ADLs at this time . Pt is unlikely to be appropriate for Assisted living return any time soon. Goals Grooming Goal Independent Dressing Goal Independent Toileting Goal Independent Bathing Goal Minimal Assistance Toilet Transfer Goal Independent Shower Transfer Goal Independent Days to Meet Goals 20 Frequency of Treatment Frequency Of Treatment Once a Day Treatment Plan OT Treatment Plan ADL Training,Functional Cognition Training,Functional Mobility,Patient/Family Education,Discharge Planning Other Treatment Recommendations and Next cog assessment, ADLs seated, Treatment Focus transfers Discharge Recommendations OT Discharge Recommendations SNF Rehab Transportation Needs at Discharge Wheelchair/Cabulance
--- NOTE | 2023-06-11 15:16 | CM.DANOTE ---
Reviewed EMR for pt's medical status and initial anticipated d/c needs. Attempted to meet w/pt at bedside, however she was found to be sleeping, appearing comfortable. Left a message for son, Adrian, to return this INDIAN NANNY's call in order to discuss plan for SNF and clarify family preferences for facility. Payor: [facility] PCP: Lala Garcia Pt is a 87 year-old F with a hx of hypertension and hyperlipidemia presented at the ED on 06/10 with worsening dizziness, weakness, and some slurring in her words over the course of this last week. ED evaluation demonstrates acute bradycardia. Son reportedly shared that she does not typically experience dizziness in the way that she is currently presenting. Son is out of state, is planning to fly in and assist with next steps for d/c recommendations. Pt resides in an assisted living facility in [place], uses a scooter for mobility, and otherwise is able to stand by not walk on her own w/o assistance. PT/OT eval recommendations are for SNF rehab, due to her slow progress with therapies, remains a high fall risk, and requires a 2-person assist with transfers. INDIAN NANNY did place a call to [facility] requesting the initiation of an auth. This remains pending their return call. Will plan to start referrals to SNF facilities once we have the prior-auth, and pt/son are able to provide their preference for which facility. DCP will continue to follow closely. D/C order is already completed by Hospitalist. Discharge Planning/Care Management Advanced directive, confirm from FAMILY Start: 06/10/23 22:17 Freq: Q24H Status: Active Protocol: Document 06/10/23 22:17 MD (Rec: 06/10/23 23:41 [id number]) Advance Directive, confirm on record Time 22:00 Person contacted facility Copy received Yes Advanced directive available on record Yes CM Discharge Assessment Start: 06/11/23 15:00 Freq: Status: Active Protocol: Document 06/11/23 15:01 DPL (Rec: 06/11/23 15:16 DPL [id number]) Discharge Planning Assessment Assigned Equipment Mechanic RODOLFO Ashby DPOA/Assigned Designee Name Adrian Ely Contact Information Advance Directives? Yes: POLST form in chart Advance Directives on File No History Provided By Medical Record Has Patient been admitted in last 30 No days? Prior Living Arrangements Assisted Living Comment [facility] [place]: Household Members other Facility Name Admitted From: [facility] Willing to Return to Facility? Yes Independent with ADL's No: Pt depends on assistance from cg at the assisted living facility. Is patient alert and oriented? Yes Needs Assistance With Bathing,Grooming,Meal Prep, Managing Medications,Home Chores / Shopping Caregiver for Another No DME Already Rented / Owned Wheelchair,FWW / Walker Comment Pt uses a scooter to mobilize, can stand on her own but not walk. Patient/Family Preference Senior Care Facility Comment Pt does reside in assisted living, however she will need continued PT/OT for OP rehab due to her continued fall risk and requiring a 2-person assist for transfers. Barriers to Discharge Yes Comment Pending authorization for SNF from [facility]. INDIAN NANNY placed a call and left message requesting the auth today. Discharge Plan Senior Care Facility Community Services Physical Therapy Transportation Arrangement Medical transport/private pay. Referrals Initiated Senior Care Additional Comment Left a msg w/son to call this INDIAN NANNY in order to decide the preference for local SNF. If patient plan is SNF: Has PASSR been Yes: Date/Facility name not completed? yet completed Medicare Choice List Provided No Medicare choice list reviewed on family electronic tablet with Has Agency SNF been contacted No Whiteboard Updated in Patient Room with No name and ext. # of Equipment Mechanic Comment Pt was sleeping at time of this visit. Review Status In Process Please Provide Date Initial DC 06/12/23 Assessment Was Performed
--- NOTE | 2023-06-11 15:53 | ST.IPCSEOM ---
Visit Care Team Role Provider Type Lala Garcia MD Primary Care Provider Non-Staff Specialty: Family Practice Address: [address] [facility], [address] Email: Suzy Redman DO Emergency Provider Physician Referring Provider Specialty: Emergency Medicine Address: [address] [place] [address], [id number] Email: [email or web address] Toby Velez MD Admit Provider Physician Attending Provider Specialty: Internal Medicine Address: [address] [place] [address], [facility] Fax: Email: [email or web address] Current Diagnoses Hyperlipidemia, unspecified (06/10/23) Essential (primary) hypertension (06/10/23) Atherosclerotic heart disease of [place] coronary artery without angina pectoris (06/10/23) Chronic kidney disease, unspecified (06/10/23) Bradycardia, unspecified (06/10/23) Speech-Language Pathology Swallow Evaluation TANK MA[employer]ER [employer] Clinical Swallow Evaluation Start: 06/11/23 14:09 Freq: Status: Active Protocol: Document 06/11/23 14:09 (Rec: 06/11/23 14:15 [id number]) Clinical Swallow Evaluation Session Time Visit Start Time 13:20 Visit Stop Time 14:05 Total Visit Minutes 45 Referral Referring Provider hospitalist Setting Assessment Location Acute Care Visit Type Note Type Initial evaluation Patient Information Identification Type Name,Date of History per H&P: 87 years old female with history of hypertension, hyperlipidemia, CAD, CKD, presents to the ER with dizziness and near syncope. She also reports feeling weak. Per son, pt may have been slurring her words when he spoke to her on the phone. the patient missed her medications and took double dose of her home medications this morning. Denies any chest pain, shortness of breath, cough, fever, nausea, vomiting, abdominal pain, diarrhea or dysuria. In the ER she was found to have heart rates around 40s. Her initial labs shows WBC 6.3, creatinine 1.2, blood sugar 115, troponin normal, BNP 279, CT of the head unremarkable and CT of the chest no acute changes. EKG shows bradycardia with first-degree AV block. ST referred to eval and treat as appropriate d/t potential for stroke. Subjective Observations Pt seen alert and upright in bed. Reported by Patient/Caregiver Other Symptoms Coughing,Other Comment pt reports mild difficulty w swallow initiation and occasional globus sensation, with small cough observed both w and without intake. Pt states her son fills her pill box every week and that she has not had any difficulty w taking then appropriately other than this once. Cognitive screen indicates mild memroy deficits, but likely appropriate for current level of care. Current Diet Regular (IDDSI 7) Baseline Feeding Method Independent in self-feeding Type of Patient Questionnaire (e.g., EAT PROMIS GDS -10, MDADI, etc.) Results score 13/56.7, indicative of mild swallowing deficits. Pt verbalized occasional dificulty w swallow initiation causing issues w medication and occasionally with food, but also saliva. She stated this started just before current hospitalization. The IDDSI Framework Protocol: IDDSI.1 Objective Assessment Mental Status Alert,Cooperative Oral Integrity Oral residue Dentition Within normal limits Lip Function Mild impairment Observation of Lips at Rest Left sided weakness/Drooping Pucker Reduced range of motion, Reduced strength Lip Retraction Within normal limits Alternating Pucker/Lip Retraction Incoordination Tongue Function Mild impairment Observations of Tongue at Rest Within normal limits Tongue Protrusion Reduced strength Tongue Retraction Reduced strength Tongue Lateralization Reduced strength, Incoordination Jaw Function Within normal limits Hard/Soft Palate Function Within normal limits Respiratory Sufficiency Mild impairment Comment Facial asymmetry very mild, left side, overall reduced movement bilaterally. Dentition in fair condition. Reduced strength and ROM of lips and tongue. Pt demonstrated mild difficulty w coordination/ slowed facial/ labial motor movements. Palatal elevation observed. Oral hygiene adequate. Speech WFL Food and Liquid Trials Position During Assessment Upright (90 degrees) Liquids Trialed Thin (IDDSI 0) Solid Trials Regular (IDDSI 7) Administration Type Cup single sip,Straw Oral Impairment Mildly impaired Oral Phase Comments reduced lingual strength, speed, and coordination, reduced bolus control with oral residue from solid intake . Difficulty w swallow initiation, possible tongue pumping observed. Pharyngeal Impairment Within functional limits Pharyngeal Phase Comments suspected generalized weakness of the pharyngeal squeeze and base of tongue. no overt s/s of asp/pen with any trials. Pt demonstrating a mild dry nonproductive cough. The IDDSI Framework Protocol: IDDSI.1 Findings Swallowing Function Oropharyngeal phase dysphagia Severity of Swallow Impairment Mildly impaired Contributing Factors to Swallow Reduced oral strength/ Impairment coordination/sensation,Delayed swallow initiation Prognosis Fair Comment Pt demonstrated mild oropharyngeal dysphagia, demonstrated by general weakness and discoordination, with difficulty in swallow initiation (moreso in the evening when sheis tired). No overt s/s of asp/pen were observed. While silent aspiration cannot be ruled out without an instrumental, pt verbalized preference to forgo an MBS and rehab exercises at this time, and trial use of swallow strategies, including small bites and sips, pausing with bites if she feels difficulty w initiation, temperature and flavor alterations, and possibly taking pills w yogurt /applesauce should difficulty w pills continue. Pt appears safe to return to previous residence w supports and good use of strategies, with referral to ST as needed. Recommendations Instrumental Assessment No Swallowing Treatment No Recommended Solids Regular (IDDSI 7) Recommended Liquids Thin (IDDSI 0) Safety Precautions/Swallowing Remain upright (90 degrees) Recommendations during all oral intake,Small bites and sips when eating, Slow rate; swallow between bites,Multiple swallows Medication Recommendations As Tolerated,Whole in Carrier Education Patient/Caregiver Education Patient expressed understanding of evaluation
[2023-06-11 16:00] VITALS: BP 117/56; PULSE 50; O2SAT 94
--- NOTE | 2023-06-11 17:27 | PM.PN.1 ---
Subjective Subjective Date Patient Seen: 06/11/23 Time Patient Seen: 08:00 Interval history: She has no dizziness when I see her. She had orthostatic checked which were negative. Per PT she required max 2 assist. She has no chest pain or shortness of breath. Exam Vital Signs (past 8 hours): - 06/11/23 11:30 06/11/23 12:00 Pulse Rate 54 L Pulse Rate [Orthostatic Lying] 47 L Pulse Rate [Orthostatic Standing] 54 L Blood Pressure 108/83 Blood Pressure [Orthostatic Lying] 109/41 L Blood Pressure [Orthostatic Standing] 108/83 Oxygen Delivery Method Room Air Oxygen Flow Rate 0 Narrative Exam Narrative: GEN: frail, chronically ill appearing CV: regular rate and rhythm PULM: clear bilaterally ABD: soft, nontender EXT; chronic edematous changes 2+ Objective Labs 06/10/23 15:05 06/10/23 15:05 Labs: Laboratory Results - last 24 hr 06/10/23 06/11/23 15:05 03:46 NT-Pro-B Natriuret Pep 279 TSH 3.01 PFSH Social History household members: other Smoking Status: Never smoker alcohol intake: never Assessment & Plan Assessment & Plan narrative: 1. Dizziness, weakness -likely multifactorial due to her overall poor health -suspect less likely related to bradycardia -for now will hold beta-radha -PT/OT worked with her and said she's very weak -CM to work on placement 2. CKD -monitor daily 3. Hypertension -hold atenolol 4. CAD -aspirin, statin DIspo: stable for discharge from the hospital, medically Quality VTE Deep Vein Thrombosis/Pulmonary Embolism Present on Admission: No
[2023-06-11 20:09] LABS: Blood Urea Nitrogen 44 mg/dL (7-17); Calcium 9.3 mg/dL (8.4-10.2); Carbon Dioxide 34 mmol/L (22-32); Chloride 98 mmol/L (98-107); Estimated Glomerular Filt Rate > 60 mL/min (>60); Glucose 106 mg/dL (80-110); HEMOLYSIS < 15 (0-50); Magnesium 2.1 mg/dL (1.6-2.3); Sodium 136 mmol/L (137-145)
[2023-06-11 20:18] VITALS: BP 117/45; PULSE 54; RESP 18; TEMP 35.8; O2SAT 94
--- NOTE | 2023-06-11 22:08 | PC.NURSE ---
BLE wound photo.
[2023-06-12] VITALS: BP 135/57; PULSE 54; RESP 18; TEMP 35.5; O2SAT 92
[2023-06-12 04:58] VITALS: BP 121/49; PULSE 55; RESP 19; TEMP 35.8; O2SAT 97
[2023-06-12 08:00] VITALS: BP 132/43; PULSE 61; RESP 16; TEMP 35.5; O2SAT 91
--- NOTE | 2023-06-12 08:34 | PC.NURSE ---
Addendum entered by Liberty León R.N. 06/12/23 15:26: Report called to [facility]. Patient left here at 1430.. She had a bowel movement and voided prior to leaving. Addendum entered by Liberty León R.N. 06/12/23 09:10: Patient is tolerating taking her po medications one at a time with apple sauce. She needs lots of encouragement and she is doing well. Just ordered her lunch for today. Easy to swallow foods and taking her time is working well. Original Note: Assess- Patient is alert and oriented x4. She states that she has trouble swallowing but is able to swallow some ensure. She didnt want her regular breakfast this morning. Patient has multiple skin issues, these can all be seen under skin assessment. Patient has 4+ edema to lower extremities all the way down to her toes, and her legs are dry. She is a two person assist to get up and has a pure wick inserted to void at this time. She is resting comfortably and we are repositioning her every two hours.
[2023-06-12] MEDS: ASPIRIN EC 81 MG TABLET PO (08:53)
[2023-06-12] MEDS: allopurinoL 100 MG TABLET PO (08:53)
[2023-06-12] MEDS: ATORVASTATIN 20 MG TABLET 40 MG PO (08:53)
--- NOTE | 2023-06-12 12:08 | OT.IP.TRT ---
Current Diagnoses Hyperlipidemia, unspecified (06/10/23) Essential (primary) hypertension (06/10/23) Atherosclerotic heart disease of [place] coronary artery without angina pectoris (06/10/23) Chronic kidney disease, unspecified (06/10/23) Bradycardia, unspecified (06/10/23) Occupational Therapy Treatment Note M2 OT-IP Current Condition Start: 06/11/23 12:38 Freq: Status: Active Protocol: Document 06/11/23 12:39 CGR (Rec: 06/11/23 13:36 CGR [id number]) Occupational Therapy Current Condition Current Condition Evaluation Date 06/11/23 Treatment Diagnosis dizziness Diagnosis Onset Date 06/10/23 M3 OT- IP Subjective and Pain Start: 06/11/23 12:38 Freq: Status: Active Protocol: Document 06/12/23 11:35 CCC (Rec: 06/12/23 12:19 CCC [id number]) OT- Subjective Occupational Therapy Visit Type Visit Start Time 11:35 Visit Stop Time 12:08 Total Visit Minutes 33 Occupational Therapy Visit Comments Patient Comments Pt needing encouragement and then agreed to get up to use the BSC. OT Pain Assessment Pain When Pain Assessed During Mobility Pain Present Pain Present Denied Pain M4 OT- IP ADL's Start: 06/11/23 12:38 Freq: Status: Active Protocol: Document 06/12/23 11:35 CCC (Rec: 06/12/23 12:19 CCC [id number]) OT ADL-Grooming Comments OT Grooming Comments not performed OT ADL-Dressing General Eval Upper Body Dressing Ability Maximum Assistance,Total Assistance Areas Needing Assistance Underpants/Brief,Socks Comments OT Dressing Comments Pt able to hold the brief and needing assist to help thread her legs and pull up over her hips. Pt was trying to assist with the brief while standing with the FWW. OT ADL-Toileting Comments OT Toileting Comments sba for pericare and max a for clothing management OT ADL-Bathing Comments OT Bathing Comments not performed M5 OT- IP IADL's Start: 06/11/23 12:38 Freq: Status: Active Protocol: Document 06/11/23 12:39 CGR (Rec: 06/11/23 13:36 CGR [id number]) OT-Instrumental Activities of Daily Living Deficits IADL Deficits Identified Deficits Home Safety Awareness Awareness of Need for Assistance at Home Decreased Awareness Ability to Problem Solve Emergency Unable to Problem Solve Situations Medication Management Medication Management Comments Concerns regarding her ability to perform safely Money Management Money Management Comments Concerns regarding her ability to perform safely Meal Preparation Meal Preparation Caregiver Provides Assist Meal Preparation Comments pt has meals delivered Tray Setter Tray Setter Caregiver Provides Assist Driving Driving Comments Pt does not drive M6 OT- IP Functional Cognition Start: 06/11/23 12:38 Freq: Status: Active Protocol: Document 06/12/23 11:35 [facility] (Rec: 06/12/23 12:19 [facility] [id number]) Cognitive Factors Limiting Selfcare Function Cognitive Comments Cognitive Assessment Comments Pt able to follow commands for ADl and mobility needs. To try cognitive assessment next session. M7 OT- IP Mobility and Balance Start: 06/11/23 12:38 Freq: Status: Active Protocol: Document 06/12/23 11:35 [facility] (Rec: 06/12/23 12:19 [facility] [id number]) OT- Bed Mobility Assessment Sit to Supine Sit to Supine Assist Moderate Assistance OT-Transfer Assessment Sit to and From Stand Sit to and from Stand Maximum Assistance,2 Person Assistance Transfers Transfer Ability Moderate Assistance,Maximum Assistance,2 Person Assistance Technique Transfer Destination Bed,Bedside Commode Transfer Technique Stand Step Pivot Devices Transfer Assistive Devices Gait Belt,Front Wheeled Walker Comments Mobility Comments Pt MODA to assist to get her legs to the edge of the bed and heavy use of bed rails to assist. MAX AX 2 to stand and transfer as needing assist for weight shifting with FWW. Pt able to stand with MAX Ax1 with FWW while nursing aid able to switch out the BSC to recliner. OT- Gait Assessment Comments Gait Ability Comments Pt does not ambulate at baseline. OT- Balance Assessment Sitting Balance and Reactions Static Sitting Balance Ability Good Dynamic Sitting Balance Ability Fair Standing Balance and Reactions Static Standing Balance Ability Poor M8 OT- IP Objective Assessments Start: 06/11/23 12:38 Freq: Status: Active Protocol: Document 06/11/23 12:39 CGR (Rec: 06/11/23 13:36 CGR [id number]) OT Gross Range of Motion Upper Extremity Range of Motion Assessment Right Impaired ROM Impairments R shld limited mobility from a previous break OT Strength Upper Extremity Strength Assessment Bilaterally Impaired Comments Strength Comments R shld not tested but otherwise 3+/5 OT- Coordination Assessment Upper Extremity Finger to Nose Test Within Functional Limits Finger Tapping Test Within Functional Limits OT-Muscle Tone Assessment Muscle Tone WNL Yes OT Sensation Assessment Edema Edema Present Edema Comments PT has severe edema to BLE M9 OT- IP Assessment and Plan Start: 06/11/23 12:38 Freq: Status: Active Protocol: Document 06/12/23 11:35 [facility] (Rec: 06/12/23 12:19 [facility] [id number]) OT Summary Assessment and Plan Potential Rehabilitation Potential Good Analytic Complexity at Evaluation Moderate Summary OT Impairments Range of Motion,Strength, Balance,Functional Cognition, Functional Mobility,Grooming, Dressing,Toileting,Bathing, Toilet Transfers,Shower Transfers,Activity Tolerance Progress Towards Goals Slow Progress due to Activity Tolerance,Slow Progress due to Cognition Assessment Summary Pt able to participate in bed mobility and toileting. Pt still requires extensive assist x2 for transfer and toileting needs and will benefit from skilled rehab at this time. Goals Grooming Goal Independent Dressing Goal Independent Toileting Goal Independent Bathing Goal Minimal Assistance Toilet Transfer Goal Independent Shower Transfer Goal Independent Days to Meet Goals 19 Frequency of Treatment Frequency Of Treatment Once a Day Treatment Plan OT Treatment Plan ADL Training,Functional Cognition Training,Functional Mobility,Patient/Family Education,Discharge Planning Other Treatment Recommendations and Next cog assessment, ADLs seated, Treatment Focus transfers Discharge Recommendations OT Discharge Recommendations SNF Rehab Transportation Needs at Discharge Wheelchair/Cabulance
--- NOTE | 2023-06-12 13:58 | PM.DS.1 ---
History of Present Illness History of Present Illness Chief complaint: vertigo Narrative: Per admitting physician: 87 years old female with history of hypertension, hyperlipidemia, CAD, CKD, presents to the ER with dizziness and near syncope. She also reports feeling weak. Yesterday the patient missed her medications and took double dose of her home medications this morning. Denies any chest pain, shortness of breath, cough, fever, nausea, vomiting, abdominal pain, diarrhea or dysuria. In the ER she was found to have heart rates around 40s. Her initial labs shows WBC 6.3, creatinine 1.2, blood sugar 115, troponin normal, BNP 279, CT of the head unremarkable and CT of the chest no acute changes. EKG shows bradycardia with first-degree AV block. Discharge Providers Provider Date of admission: 06/10/23 21:19 Discharge Date: 06/12/23 Primary care physician: Lala Foster MD Consults: 06/10/23 21:13 Consult to Discharge Planning Routine Comment: 06/11/23 09:12 Consult to Occupational Therapy Evaluate & Treat Comment: Physician Instructions: Evaluate and treat Consult to Physical Therapy Evaluate & Treat Comment: Physician Instructions: Evaluate and Treat Consult to Speech Therapy Evaluate & Treat Comment: reports difficulty swallowing x2 months Physician Instructions: Evaluate and treat Discharge provider: Flo Mancini MD Summary Hospital Course Discharge Diagnosis: 1. Dizziness, weakness 2. Dysphagia 3. Chronic kidney disease 4. Hypertension 5. Coronary artery disease Hospital Course: Ms. Ely was admitted with a low heart rate and dizziness. She felt better with stopping her atenolol. She also has had some difficulty with swallowing which had been progressing for weeks.. She was seen by speech therapy, who suggested possible modified barium swallow which was declined at this point. She was recommended to have care with her diet, but could continue to have a regular diet. She had a CT head done which showed no acute process or stroke. She is discharged on aspirin and statin to protect against heart attack and stroke. She was quite weak and was discharged to SNF for PT and speech therapy. She has chronic lower leg swelling and should have compression stockings on as much as she can. Exam Vital Signs (past 8 hours): - 06/12/23 08:00 Temperature 96 F L Pulse Rate 61 Respiratory Rate 16 Blood Pressure 132/43 L Pulse Oximetry 91 Oxygen Delivery Method Room Air Oxygen Flow Rate 0 Narrative Exam Narrative: GEN: frail, chronically ill appearing CV: regular rate and rhythm PULM: clear bilaterally ABD: soft, nontender EXT; chronic edematous changes 2+ Objective Labs 06/10/23 15:05 06/11/23 19:00 Labs: Laboratory Results - last 24 hr 06/11/23 19:00 Sodium 136 L Potassium 4.0 Chloride 98 Carbon Dioxide 34 H BUN 44 H Creatinine 0.88 Estimated GFR > 60 BUN/Creatinine Ratio 50.0 H Glucose 106 Calcium 9.3 Magnesium 2.1 PFSH Social History household members: other Smoking Status: Never smoker alcohol intake: never Discharge Plan Discharge Plan Patient Disposition: Home Provider Discharge Comment: Ms. Ely was admitted to the hospital for low heart rate and dizziness. She felt better with stopping her atenolol. She had some swallowing issues. She is recommended to go to SNF for PT and speech therapy. Discharge orders & Medications Prescriptions: New pantoprazole [Protonix] 40 mg tablet,delayed release (DR/EC) 40 mg PO DAILY Qty: 30 0RF Continued atorvastatin 40 mg Tablet 40 mg PO DAILY allopurinol 100 mg Tablet 100 mg PO DAILY furosemide 20 mg Tablet 20 mg PO DAILY Rx Instructions: Take daily in the afternoon aspirin 81 mg Capsule 81 mg PO DAILY Discontinued furosemide 40 mg Tablet 40 mg PO DAILY atenolol 100 mg Tablet 100 mg PO DAILY Follow up/Referrals: Lala Garcia MD [Primary Care Provider] - 2 Weeks (hospitalized for bradycardia and dizziness) Diet/Activity/Treatments Diet: Regular Visit Report/Discharge Packet Stand Alone Forms: Patient Portal/API, Stroke Signs & Symptoms Discharge Data Primary Care Provider: Lala Garcia Attending Provider: Toby Velez Admit Date/Time: 06/10/23 21:19 Quality VTE Deep Vein Thrombosis/Pulmonary Embolism Present on Admission: No
--- NOTE | 2023-06-12 13:58 | CM.DPC ---
DCP Cont. Reviewed EMR and status updates. Several calls made today w/Ric in obtaining the prior auth for [facility] placement for SNF rehab. Met w/son and spoke w/him several times re: plan and preferences for d/c needs. [facility] accepts, will p/u pt today at 2:30pm. Son will arrive prior to her d/c in order to sign consent forms at [facility]. No further DCP needs are indicated at this time. [place] Auth# [id number]
== END 2023-06-12 14:30 ==
LOC: ED 21:05 → AC 21:20
PROVIDERS: Emergency Medicine; Admitting Provider Internal Medicine; Emergency Provider Emergency Medicine; PCP Family Medicine; Referring Provider Emergency Medicine; Visit Provider Internal Medicine
DX: R42 Dizziness and giddiness (principal); R53.1 Weakness; N18.9 Chronic kidney disease, unspecified; I25.10 Atherosclerotic heart disease of native coronary artery without angina pectoris; R00.1 Bradycardia, unspecified; I10 Essential (primary) hypertension; E78.5 Hyperlipidemia, unspecified; R13.10 Dysphagia, unspecified; R29.700 NIHSS score 0
CPT/HCPCS: 36415; 70450; 71045; 71260; 80048; 80053; 82550; 83690; 83735; 83880; 84443; 84484; 85025; 85610; 85730; 92610; 93005; 97162; 97166; 97530; 97535; 99284; G0378; Q9967

== ENCOUNTER → 2023-06-14 14:50 | Outpatient (CLI) | payer OTHER, SELFPAY ==
[2023-06-10 22:04] VITALS: BMI 37.2
--- NOTE | 2023-06-14 14:56 | DI.RAD.S_ITS ---
PROCEDURE: XR CHEST 2V INDICATIONS: OXYGEN DESAUTURATIONS WITH ADVENTITOUS LUNG SOUNDS TECHNIQUE: 2 views of the chest were acquired. COMPARISON: [facility], CR, XR CHEST 1V, 06/10/2023, 15:06. FINDINGS: Surgical changes and devices: None. Lungs and pleura: Diffuse airspace opacity throughout both lungs, worse on the right. No pneumothorax or pleural effusion. Mediastinum: Mediastinal contours are normal. Heart size is enlarged. Bones and chest wall: No suspicious bony abnormalities. Soft tissues appear unremarkable. IMPRESSION: Diffuse bilateral airspace opacities, worse on the right, most consistent with CHF versus a diffuse infectious process. Dictated by: Khurram Vidal M.D. on 06/14/2023 at 16:52 Approved by: Khurram Vidal M.D. on 06/14/2023 at 16:54
== END ==
PROVIDERS: PCP Family Medicine; Referring Provider Nurse Practitioner Family; Visit Provider Nurse Practitioner Family
DX: R09.89 Other specified symptoms and signs involving the circulatory and respiratory systems (principal)
CPT/HCPCS: 71046

== ENCOUNTER 2023-06-26 13:58 | Emergency (ER) | payer OTHER, SELFPAY ==
[2023-06-10 22:04] VITALS: BMI 37.2
[2023-06-26] VITALS (24 sets, daily range): BP systolic 105–157; BP diastolic 59–94; PULSE 54–128; RESP 13–41; TEMP 36.5; O2SAT 90–96; BMI 33.3
--- NOTE | 2023-06-26 14:30 | DI.CT.S_ITS ---
PROCEDURE: CT HEAD/BRAIN WO CON INDICATIONS: eval for TIA TECHNIQUE: Noncontrast 4.5 mm thick angled axial sections acquired from the foramen magnum to the vertex, with coronal and sagittal reformats. For radiation dose reduction, the following was used: automated exposure control, adjustment of mA and/or kV according to patient size. COMPARISON: [facility], CT, CT HEAD/BRAIN WO CON, 06/10/2023, 18:55. FINDINGS: Image quality: Excellent. CSF spaces: Basal cisterns are patent. No extra-axial fluid collections. The ventricles are symmetric in size and shape. Brain: No intracranial bleeds or masses. There is cerebral volume loss for age, with resultant ventricular and sulcal prominence. There are periventricular and deep white matter chronic small vessel ischemic changes. There is intracranial internal carotid artery atherosclerosis. Skull and face: Calvarium and visualized facial bones appear intact, without suspicious lesions. Sinuses: Visualized sinuses and mastoids are clear. IMPRESSION: 1. No acute intracranial process. 2. Moderate atrophy and chronic microvascular ischemic changes. Dictated by: Estefanía Rogers M.D. on 06/26/2023 at 15:12 Approved by: Estefanía Rogers M.D. on 06/26/2023 at 15:12
[2023-06-26 14:45] LABS: Add Manual Diff / Slide Review NO; Basophils Absolute Auto 0 /uL (0-100); Basophils Percent Auto 0.6 % (0-2); Eosinophils Absolute Auto 0 /uL (0-450); Eosinophils Percent Auto 0.7 % (2-4); Hematocrit 32.2 % (36-46); Hemoglobin 10.8 g/dL (12.0-16.0); Lymphocytes Absolute Auto 700 /uL (1100-4500); Lymphocytes Percent Auto 10.6 % (25-40); Mean Corpuscular HGB Conc 33.5 % (30-36); Mean Corpuscular Volume 95.8 fL (80-100); Monocytes Absolute Auto 300 /uL (0-900); Monocytes Percent Auto 5.3 % (3-14); Neutrophils Absolute Auto 5400 /uL (1500-7000); Neutrophils Percent Auto 82.8 % (50-75); Platelet Count 120 X10^3/uL (150-400); Red Blood Cell Count 3.36 X10^6/uL (4.0-5.2); Red Cell Distribution Width 17.9 % (11.6-14.8); White Blood Cell Count 6.5 X10^3/uL (4.5-11.0)
[2023-06-26 14:56] LABS: Albumin 3.8 g/dL (3.5-5.0); Albumin Globulin Ratio 1.1 (1.0-2.8); Alkaline Phosphatase 159 U/L (38-126); BUN Creatinine Ratio 27.5 (6-22); Bilirubin Total 1.3 mg/dL (0.2-1.3); Blood Urea Nitrogen 39 mg/dL (7-17); Calcium 10.2 mg/dL (8.4-10.2); Carbon Dioxide 36 mmol/L (22-32); Chloride 94 mmol/L (98-107); Estimated Glomerular Filt Rate 36 mL/min (>60); Ethanol (ETOH) < 10 mg/dL; Globulin 3.5 g/dL (1.7-4.1); Glucose 96 mg/dL (80-110); Sodium 135 mmol/L (137-145); Total Protein 7.3 g/dL (6.3-8.2)
[2023-06-26 14:57] LABS: Aspartate Aminotransferase 95 IU/L (14-36); HEMOLYSIS 94 (0-50)
[2023-06-26 14:58] LABS: Alanine Aminotransferase 98 IU/L (<35)
--- NOTE | 2023-06-26 16:39 | ED_ITS ---
HPI - General Adult <Pablo Michael DO - Last Filed: 06/27/23 07:02> General Chief complaint: Altered Mental Status Stated complaint: ams Time Seen by Provider: 06/26/23 14:18 Source: patient, family and EMS Mode of arrival: Wheelchair History of Present Illness HPI narrative: Patient is an 87-year-old female. Patient is full code per family at bedside and PLOST form. She is here in the emergency department initially for concerns of TIA. The patient has no specific complaints. Per EMS and family it appears that for the past several days the patient has had episodes which sound like are increasing in frequency where she looks like she just falls asleep and lays off to the side. There was concern that maybe her heart rate ?spikes? afterwards. There was concern about TIA or stroke. Here in the emergency department patient has no chest pain, no shortness of breath, no headache, no abdominal pain, states she does not feel nauseous. She is no abdominal symptoms. Review of the medical record shows that she was admitted to the hospital a couple weeks ago for bradycardia and dizziness. At that time her heart rate was in the 60s. She had been on atenolol and this medication was stopped. Related Data Home Medications Medication Instructions Recorded Confirmed allopurinol 100 mg tablet 100 mg PO DAILY 06/10/23 06/10/23 aspirin 81 mg capsule 81 mg PO DAILY 06/10/23 06/10/23 atorvastatin 40 mg tablet 40 mg PO DAILY 06/10/23 06/10/23 furosemide 20 mg tablet 20 mg PO DAILY 06/10/23 06/10/23 Previous Rx's Medication Instructions Recorded pantoprazole 40 mg tablet,delayed 40 mg PO DAILY #30 tabs 06/12/23 release (Protonix) Allergies Allergy/AdvReac Type Severity Reaction Status Date / Time colchicine Allergy Verified 06/26/23 14:13 NSAIDS (Non-Steroidal Allergy Verified 06/26/23 14:13 Anti-Inflamma Review of Systems <Pablo Michael DO - Last Filed: 06/27/23 07:02> Constitutional Constitutional: Reports system reviewed and no additional complaints, except as documented Cardiovascular Cardiovascular: Reports system reviewed and no additional complaints, except as documented Respiratory Respiratory: Reports system reviewed and no additional complaints, except as documented Gastrointestinal Gastrointestinal: Reports system reviewed and no additional complaints, except as documented Neurologic Neurologic: Reports system reviewed and no additional complaints, except as documented Hematologic/Lymphatic On Anticoagulants: No Patient History <Pablo Michael DO - Last Filed: 06/27/23 07:02> Social History household members: other Smoking Status: Never smoker alcohol intake: never Smoking Status: Never smoker alcohol intake frequency: 0-2 drinks per day Substance Use Type: does not use Exam <DO Natali Treadwell Last Filed: 06/27/23 07:02> Initial Vital Signs Initial Vital Signs: Vital Signs Temperature 97.7 F 06/26/23 14:09 Pulse Rate 74 06/26/23 14:09 Respiratory Rate 18 06/26/23 14:09 Blood Pressure 157/69 H 06/26/23 14:09 Pulse Oximetry 94 06/26/23 14:09 Oxygen Delivery Method Room Air 06/26/23 14:09 HENMT Head: normal to inspection and normocephalic Resp Effort & Inspection: normal respiratory effort Auscultation: clear to auscultation bilaterally Cardio Rate: bradycardic Rhythm: abnormal rhythm GI Inspection: normal to inspection and non-distended Skin General: no rashes or lesions noted Neuro General: patient alert, patient awake and moves all extremities Extrem General: normal to inspection and capillary refill normal <Kiera Gonzalez DO - Last Filed: 06/27/23 01:22> Initial Vital Signs Initial Vital Signs: Vital Signs Temperature 97.7 F 06/26/23 14:09 Pulse Rate 74 06/26/23 14:09 Respiratory Rate 18 06/26/23 14:09 Blood Pressure 157/69 H 06/26/23 14:09 Pulse Oximetry 94 06/26/23 14:09 Oxygen Delivery Method Room Air 06/26/23 14:09 Course <DO Natali Treadwell Last Filed: 06/27/23 07:02> Orders Ordered: ED Orders 06/26/23 16:56 XR chest 1V Stat 06/26/23 17:25 Troponin & CK Cardiac Panel Stat 06/26/23 19:34 Trop I [Troponin I] Stat 06/26/23 20:36 EKG-12 Lead Stat Vital Signs Vital signs: Vital Signs - 8 hr 06/26/23 23:30 06/26/23 23:30 06/27/23 00:00 Pulse Rate 61 Respiratory Rate 22 Blood Pressure 130/62 144/63 H Pulse Oximetry 92 06/27/23 00:00 06/27/23 00:30 06/27/23 00:31 Pulse Rate 62 58 L Respiratory Rate 23 24 Blood Pressure 121/104 H Pulse Oximetry 92 92 06/27/23 00:31 Pulse Rate 65 Respiratory Rate 20 Blood Pressure Pulse Oximetry 92 <Kiera Gonzalez, DO - Last Filed: 06/27/23 01:22> Orders Ordered: ED Orders 06/26/23 16:56 XR chest 1V Stat 06/26/23 17:25 Troponin & CK Cardiac Panel Stat 06/26/23 19:34 Trop I [Troponin I] Stat 06/26/23 20:36 EKG-12 Lead Stat Vital Signs Vital signs: Vital Signs - 8 hr 06/26/23 23:30 06/26/23 23:30 06/27/23 00:00 Pulse Rate 61 Respiratory Rate 22 Blood Pressure 130/62 144/63 H Pulse Oximetry 92 06/27/23 00:00 06/27/23 00:30 06/27/23 00:31 Pulse Rate 62 58 L Respiratory Rate 23 24 Blood Pressure 121/104 H Pulse Oximetry 92 92 06/27/23 00:31 Pulse Rate 65 Respiratory Rate 20 Blood Pressure Pulse Oximetry 92 Medical Decision Making <Pablo Michael, DO - Last Filed: 06/27/23 07:02> Medical Records Medical records reviewed: Yes I reviewed the patient's medical records. Lab Data Lab results reviewed: Yes I reviewed the patient's lab results. 06/26/23 14:28 06/26/23 14:28 Labs: Lab Results 06/26/23 06/26/23 06/26/23 Range/Units 14:28 14:32 17:25 WBC 6.5 (4.5-11.0) X10^3/uL RBC 3.36 L (4.0-5.2) X10^6/uL Hgb 10.8 L (12.0-16.0) g/dL Hct 32.2 L (36-46) % MCV 95.8 (80-100) fL MCH 32.0 (26-34) PG MCHC 33.5 (30-36) % RDW 17.9 H (11.6-14.8) % Plt Count 120 L (150-400) X10^3/uL Neut % (Auto) 82.8 H (50-75) % Lymph % (Auto) 10.6 L (25-40) % [place] % (Auto) 5.3 (3-14) % Eos % (Auto) 0.7 L (2-4) % Baso % (Auto) 0.6 (0-2) % Neut # (Auto) 5400 (9886-3425) /uL Lymph # (Auto) 700 L (0562-7048) /uL [place] # (Auto) 300 (0-900) /uL Eos # (Auto) 0 (0-450) /uL Baso # (Auto) 0 (0-100) /uL Sodium 135 L (137-145) mmol/L Potassium 4.0 (3.4-5.1) mmol/L Chloride 94 L (98-107) mmol/L Carbon Dioxide 36 H (22-32) mmol/L BUN 39 H (7-17) mg/dL Creatinine 1.42 H (0.52-1.04) mg/dL Estimated GFR 36 L (>60) mL/min BUN/Creatinine Ratio 27.5 H (6-22) Glucose 96 (80-110) mg/dL Calcium 10.2 (8.4-10.2) mg/dL Magnesium 1.7 (1.6-2.3) mg/dL Total Bilirubin 1.3 (0.2-1.3) mg/dL AST 95 H (14-36) IU/L ALT 98 H (<35) IU/L Alkaline Phosphatase 159 H (38-126) U/L Total Creatine Kinase 93 (30-135) U/L Troponin I 0.042 H (0.01-0.034) ng/mL Total Protein 7.3 (6.3-8.2) g/dL Albumin 3.8 (3.5-5.0) g/dL Globulin 3.5 (1.7-4.1) g/dL Albumin/Globulin Ratio 1.1 (1.0-2.8) TSH 9.29 H D (0.47-4.68) uIU/mL Free T4 1.10 (0.78-2.19) ng/dL Free T3 2.34 L (2.77-5.27) pg/mL Ethyl Alcohol < 10 ( - 10) mg/dL 06/26/23 Range/Units 19:34 WBC (4.5-11.0) X10^3/uL RBC (4.0-5.2) X10^6/uL Hgb (12.0-16.0) g/dL Hct (36-46) % MCV (80-100) fL MCH (26-34) PG MCHC (30-36) % RDW (11.6-14.8) % Plt Count (150-400) X10^3/uL Neut % (Auto) (50-75) % Lymph % (Auto) (25-40) % [place] % (Auto) (3-14) % Eos % (Auto) (2-4) % Baso % (Auto) (0-2) % Neut # (Auto) (5776-4768) /uL Lymph # (Auto) (3291-1237) /uL [place] # (Auto) (0-900) /uL Eos # (Auto) (0-450) /uL Baso # (Auto) (0-100) /uL Sodium (137-145) mmol/L Potassium (3.4-5.1) mmol/L Chloride (98-107) mmol/L Carbon Dioxide (22-32) mmol/L BUN (7-17) mg/dL Creatinine (0.52-1.04) mg/dL Estimated GFR (>60) mL/min BUN/Creatinine Ratio (6-22) Glucose (80-110) mg/dL Calcium (8.4-10.2) mg/dL Magnesium (1.6-2.3) mg/dL Total Bilirubin (0.2-1.3) mg/dL AST (14-36) IU/L ALT (<35) IU/L Alkaline Phosphatase (38-126) U/L Total Creatine Kinase (30-135) U/L Troponin I 0.038 H (0.01-0.034) ng/mL Total Protein (6.3-8.2) g/dL Albumin (3.5-5.0) g/dL Globulin (1.7-4.1) g/dL Albumin/Globulin Ratio (1.0-2.8) TSH (0.47-4.68) uIU/mL Free T4 (0.78-2.19) ng/dL Free T3 (2.77-5.27) pg/mL Ethyl Alcohol ( - 10) mg/dL Imaging Data CT scan - head: Radiologist's Impression: PROCEDURE: CT HEAD/BRAIN WO CON INDICATIONS: eval for TIA TECHNIQUE: Noncontrast 4.5 mm thick angled axial sections acquired from the foramen magnum to the vertex, with coronal and sagittal reformats. For radiation dose reduction, the following was used: automated exposure control, adjustment of mA and/or kV according to patient size. COMPARISON: [facility], CT, CT HEAD/BRAIN WO CON, 06/10/2023, 18:55. FINDINGS: Image quality: Excellent. CSF spaces: Basal cisterns are patent. No extra-axial fluid collections. The ventricles are symmetric in size and shape. Brain: No intracranial bleeds or masses. There is cerebral volume loss for age, with resultant ventricular and sulcal prominence. There are periventricular and deep white matter chronic small vessel ischemic changes. There is intracranial internal carotid artery atherosclerosis. Skull and face: Calvarium and visualized facial bones appear intact, without suspicious lesions. Sinuses: Visualized sinuses and mastoids are clear. IMPRESSION: 1. No acute intracranial process. 2. Moderate atrophy and chronic microvascular ischemic changes. Chest x-ray: Radiologist's Impression: PROCEDURE: XR CHEST 1V INDICATIONS: bradycardia, fainting, short of breath TECHNIQUE: One view of the chest was acquired. COMPARISON: [facility], CT, CT HEAD/BRAIN WO CON, 06/26/2023, 14:32. [facility], CT, CT CHEST W CON, 06/10/2023, 18:55. [facility], CR, XR CHEST 2V, 06/14/2023, 15:07. FINDINGS: Surgical changes and devices: None. Lungs and pleura: Low lung volumes are noted. This causes a crowded appearance to the lung markings and limits evaluation. Generalized interstitial prominence can be seen. Mild blunting of the costophrenic angles can be seen. No pneumothorax is seen. Mediastinum: Mediastinal contours appear normal. Heart size is moderately enlarged. Bones and chest wall: No suspicious bony lesions. Age-appropriate bony degenerative changes are seen. Overlying soft tissues appear unremarkable. IMPRESSION: Cardiomegaly with interstitial prominence and likely small pleural effusions. Please consider CHF. ECG Data Attestation: I personally reviewed and interpreted this ECG as follows: Interpretation: Presentation EKG Atrial flutter Ventricular rate of [address] T wave changes Repeat EKG Atrial flutter Ventricular rate [address] T wave changes MDM Narrative Medical decision making narrative: Patient is not on a beta-radha nor calcium channel radha. Is an atrial flutter. Compared to an EKG that was performed last time she was here in the emergency department this appears to be new. She is not on anticoagulation. She did have a episode of bradycardia with a heart rate that went to the 20s. She did appear to have a syncopal episode associated with this. It lasted seconds and then resolved. Patient is a full code. Discussed the case with Dr. Bryson on-call for cardiology who agrees that the patient should be considered for pacemaker. Transfer was cleared by L[facility]. Care turned over to Dr gonzalez to follow-up with hospitalist and disposition with anticipated transfer. <Kiera Gonzalez, DO - Last Filed: 06/27/23 01:22> Lab Data Labs: Lab Results 06/26/23 06/26/23 06/26/23 Range/Units 14:28 14:32 17:25 WBC 6.5 (4.5-11.0) X10^3/uL RBC 3.36 L (4.0-5.2) X10^6/uL Hgb 10.8 L (12.0-16.0) g/dL Hct 32.2 L (36-46) % MCV 95.8 (80-100) fL MCH 32.0 (26-34) PG MCHC 33.5 (30-36) % RDW 17.9 H (11.6-14.8) % Plt Count 120 L (150-400) X10^3/uL Neut % (Auto) 82.8 H (50-75) % Lymph % (Auto) 10.6 L (25-40) % [place] % (Auto) 5.3 (3-14) % Eos % (Auto) 0.7 L (2-4) % Baso % (Auto) 0.6 (0-2) % Neut # (Auto) 5400 (0786-7060) /uL Lymph # (Auto) 700 L (6726-4840) /uL [place] # (Auto) 300 (0-900) /uL Eos # (Auto) 0 (0-450) /uL Baso # (Auto) 0 (0-100) /uL Sodium 135 L (137-145) mmol/L Potassium 4.0 (3.4-5.1) mmol/L Chloride 94 L (98-107) mmol/L Carbon Dioxide 36 H (22-32) mmol/L BUN 39 H (7-17) mg/dL Creatinine 1.42 H (0.52-1.04) mg/dL Estimated GFR 36 L (>60) mL/min BUN/Creatinine Ratio 27.5 H (6-22) Glucose 96 (80-110) mg/dL Calcium 10.2 (8.4-10.2) mg/dL Magnesium 1.7 (1.6-2.3) mg/dL Total Bilirubin 1.3 (0.2-1.3) mg/dL AST 95 H (14-36) IU/L ALT 98 H (<35) IU/L Alkaline Phosphatase 159 H (38-126) U/L Total Creatine Kinase 93 (30-135) U/L Troponin I 0.042 H (0.01-0.034) ng/mL Total Protein 7.3 (6.3-8.2) g/dL Albumin 3.8 (3.5-5.0) g/dL Globulin 3.5 (1.7-4.1) g/dL Albumin/Globulin Ratio 1.1 (1.0-2.8) TSH 9.29 H D (0.47-4.68) uIU/mL Free T4 1.10 (0.78-2.19) ng/dL Free T3 2.34 L (2.77-5.27) pg/mL Ethyl Alcohol < 10 ( - 10) mg/dL 06/26/23 Range/Units 19:34 WBC (4.5-11.0) X10^3/uL RBC (4.0-5.2) X10^6/uL Hgb (12.0-16.0) g/dL Hct (36-46) % MCV (80-100) fL MCH (26-34) PG MCHC (30-36) % RDW (11.6-14.8) % Plt Count (150-400) X10^3/uL Neut % (Auto) (50-75) % Lymph % (Auto) (25-40) % [place] % (Auto) (3-14) % Eos % (Auto) (2-4) % Baso % (Auto) (0-2) % Neut # (Auto) (0765-0740) /uL Lymph # (Auto) (6595-8033) /uL [place] # (Auto) (0-900) /uL Eos # (Auto) (0-450) /uL Baso # (Auto) (0-100) /uL Sodium (137-145) mmol/L Potassium (3.4-5.1) mmol/L Chloride (98-107) mmol/L Carbon Dioxide (22-32) mmol/L BUN (7-17) mg/dL Creatinine (0.52-1.04) mg/dL Estimated GFR (>60) mL/min BUN/Creatinine Ratio (6-22) Glucose (80-110) mg/dL Calcium (8.4-10.2) mg/dL Magnesium (1.6-2.3) mg/dL Total Bilirubin (0.2-1.3) mg/dL AST (14-36) IU/L ALT (<35) IU/L Alkaline Phosphatase (38-126) U/L Total Creatine Kinase (30-135) U/L Troponin I 0.038 H (0.01-0.034) ng/mL Total Protein (6.3-8.2) g/dL Albumin (3.5-5.0) g/dL Globulin (1.7-4.1) g/dL Albumin/Globulin Ratio (1.0-2.8) TSH (0.47-4.68) uIU/mL Free T4 (0.78-2.19) ng/dL Free T3 (2.77-5.27) pg/mL Ethyl Alcohol ( - 10) mg/dL MDM Narrative Medical decision making narrative: Patient is not on a beta-radha nor calcium channel radha. Is an atrial flutter. Compared to an EKG that was performed last time she was here in the emergency department this appears to be new. She is not on anticoagulation. She did have a episode of bradycardia with a heart rate that went to the 20s. She did appear to have a syncopal episode associated with this. It lasted seconds and then resolved. Patient is a full code. Discussed the case with Dr. Bryson on-call for cardiology who agrees that the patient should be considered for pacemaker. Transfer was cleared by Ric. Care turned over to Dr gonzalez to follow-up with hospitalist and disposition with anticipated transfer. 06/26/23 Homar: Patient signed out to myself by Dr. Michael. Case has been discussed with on-call Cardiology patient is felt appropriate for potential pacemaker transfer was cleared by Ric and working towards placement. Patient was seen and independently evaluated by myself. TSH was added on is quite elevated so T3-T4 were added on as well, repeat troponin is downward trending. Patient did flip into what appeared to be a sinus rhythm with a first-degree block around 2043. Rate of 70 4p are 222, QRS of 114 QTC of 481. But patient did. If lip in and out to atrial flutter afterwards. Patient's imaging including head CT, chest x-ray, anemia with hemoglobin of 10.8 was 11 on the 10 of June platelets are 120 same on that date as well normal white count, creatinine is 1.42 was 0.88 on 06/11 and 1.2 on 06/10, sodium is 135 potassium 4, Mag is 1.7, BUN 39, glucose appropriate 96 LFTs 95, 36400 with a bilirubin of 1.3 troponin was indeterminate at 0.42 trended down words 2.038. TSH is 9.29 was 3.01 on 06/11/2023. Patient reportedly had her atenolol stopped it her most recent hospitalization at the end of May. She is currently only on allopurinol, aspirin, atorvastatin Lasix and pantoprazole none of which could cause her arrhythmias. She has not restarted her atenolol per family. She did have [address] Michael in the department were heart rate dropped to the 29 she syncopized but improved almost immediately and she regained consciousness. [facility] is reported to have bed availability but when re- contacted stated mood up to call after 10:00 p.m.. We did call around to other facilities in the state patient's weight listed at [facility] but no other facilities have availability. Will call [facility] if [facility] does not have beds after 10pm. [facility] called back and has no beds. Patient is full code discussed with family atropine can be helpful for short periods but not always that otherwise it would be external pacing which they are agreeable too. Spoke with Cardiology, Dr. Andrew as accepting at [place] they feel appropriate to come to there facility. He spoke with hospitalist at there facility. Discussed patient had an episode where heart rate dropped to 29 patient had a syncopal episode which was brief but did occur this was sometime before 7:00 p.m. before I came on shift. Did note she does seem to have some baseline confusion and appears her son Adrian helps to make decisions. She is not on any medications for dementia. He does recommend if any additional episodes can do a low-dose dobutamine, discussed pacing as needed. Patient updated and agreeable to transfer. Nursing also called and updated son Adrian about transfer to [place]. Spoke with hospitalist, reviewed patient's case and chart. She states Dr. Andrew is the accepting physician and they are consulting service but did not have any old labs or history so would have wanted to review patient with myself. Patient has been hemodynamically stable for myself since assuming care at 1900. Discharge Plan Departure Patient Disposition: [facility] Clinical Impression: Symptomatic bradycardia, Atrial flutter Prescriptions: No Action atorvastatin 40 mg Tablet 40 mg PO DAILY allopurinol 100 mg Tablet 100 mg PO DAILY furosemide 20 mg Tablet 20 mg PO DAILY Rx Instructions: Take daily in the afternoon aspirin 81 mg Capsule 81 mg PO DAILY pantoprazole [Protonix] 40 mg tablet,delayed release (DR/EC) 40 mg PO DAILY Qty: 30 0RF Referrals: Lala Garcia MD [Primary Care Provider] -
[2023-06-26 16:52] LABS: Magnesium 1.7 mg/dL (1.6-2.3)
--- NOTE | 2023-06-26 16:56 | DI.RAD.S_ITS ---
PROCEDURE: XR CHEST 1V INDICATIONS: bradycardia, fainting, short of breath TECHNIQUE: One view of the chest was acquired. COMPARISON: [facility], CT, CT HEAD/BRAIN WO CON, 06/26/2023, 14:32. [facility], CT, CT CHEST W CON, 06/10/2023, 18:55. [facility], CR, XR CHEST 2V, 06/14/2023, 15:07. FINDINGS: Surgical changes and devices: None. Lungs and pleura: Low lung volumes are noted. This causes a crowded appearance to the lung markings and limits evaluation. Generalized interstitial prominence can be seen. Mild blunting of the costophrenic angles can be seen. No pneumothorax is seen. Mediastinum: Mediastinal contours appear normal. Heart size is moderately enlarged. Bones and chest wall: No suspicious bony lesions. Age-appropriate bony degenerative changes are seen. Overlying soft tissues appear unremarkable. IMPRESSION: Cardiomegaly with interstitial prominence and likely small pleural effusions. Please consider CHF. Dictated by: Roberto Camargo M.D. on 06/26/2023 at 16:14 Approved by: Roberto Camargo M.D. on 06/26/2023 at 16:16
--- NOTE | 2023-06-26 16:56 | PC.NURSE ---
RN at bedside obtaining EKG, HR 29 a that time pt had then slumped over in bed and not alert. RN tapped pt on leg and shouted pt name and then pt became alert. Dr. Michael made aware and code cart pulled into room and pt placed on defib pads as precautionary.
[2023-06-26 17:39] LABS: Creatine Kinase 93 U/L (30-135)
[2023-06-26 17:50] LABS: Troponin I 0.042 ng/mL (0.01-0.034)
--- NOTE | 2023-06-26 18:35 | PC.NURSE ---
Addendum entered by Ly Leija CNA 06/26/23 20:33: This TECHNOLOGY LEAD contacted [facility] regarding bed availability they all declined to have beds tonight. Pt is waitlisted at [facility] and [facility]. Addendum entered by Lea Figueroa CNA 06/26/23 18:59: Dr. Liz Davis hospitalist at [facility] to call back to speak to provider about this pt. Original Note: TECHNOLOGY LEAD note: This casino gaming worker contacted [place] for preauthorization regarding a possible pt. transfer. Provider spoke with [place] Provider, and was approved to transfer patient. This TECHNOLOGY LEAD spoke with [facility] and spoke with household refrigeration mechanic guru Russo at [email or web address] stated they have bed availability. Faxed over ED doc note, copy of EKG (3), and updated labs with [facility]. Provider Alec spoke with cotton broker Cardiology [facility]. Tremayne Bryson requested Provider contact [facility] hospitalist. This TECHNOLOGY LEAD contacted guru shine regarding speaking with hospitalist at [phone], waiting cotton broker back.
[2023-06-26 20:04] LABS: Troponin I 0.038 ng/mL (0.01-0.034)
[2023-06-26 20:11] LABS: Thyroid Stimulating Hormone 9.29 uIU/mL (0.47-4.68)
[2023-06-26 22:50] LABS: Free T3, Triiodothyronine Free 2.34 pg/mL (2.77-5.27)
[2023-06-27] VITALS: BP 144/63; PULSE 62; RESP 23; O2SAT 92
--- NOTE | 2023-06-27 00:18 | PC.NURSE ---
Notified pt son Adrian of transfer to [facility] in [place].
[2023-06-27 00:30] VITALS: PULSE 58; RESP 24; O2SAT 92
[2023-06-27 00:31] VITALS: BP 121/104; PULSE 65; RESP 20; O2SAT 92
== END 2023-06-27 01:05 | disposition short-term general hospital (02) ==
PROVIDERS: Emergency Medicine; Emergency Provider Emergency Medicine; PCP Family Medicine
DX: R00.1 Bradycardia, unspecified (principal); I48.92 Unspecified atrial flutter; Z79.01 Long term (current) use of anticoagulants; R79.89 Other specified abnormal findings of blood chemistry
CPT/HCPCS: 36415; 70450; 71045; 80053; 80320; 82550; 83735; 84439; 84443; 84481; 84484; 85025; 93005; 93010; 99284; 99285

== ENCOUNTER 2023-10-11 09:30 | Emergency (ER) | payer OTHER, SELFPAY ==
[2023-06-10 22:04] VITALS: BMI 37.2
[2023-10-11] VITALS (13 sets, daily range): BP systolic 128–177; BP diastolic 68–84; PULSE 65–77; RESP 13–24; TEMP 36.2; O2SAT 92–96; BMI 29.1
[2023-10-11 10:42] LABS: Appearance Urine UA CLOUDY; Bilirubin Urine UA NEGATIVE (NEGATIVE); Color Urine UA YELLOW; Glucose Urine UA NEGATIVE (Negative); Ketones Urine UA NEGATIVE (NEGATIVE); Leukocyte Esterase Urine UA 3+ (NEGATIVE); Nitrite Urine UA POSITIVE (Negative); Occult Blood Urine UA 1+ (Negative); Protein Urine UA 1+ (Negative); Urobilinogen Urine UA 0.2 E.U./dL (0.2)
[2023-10-11 10:57] LABS: Urine Volume 10mL (spun)
[2023-10-11 10:58] LABS: Bacteria Urine Many (>30); Culture Indicated Urine Specimen Cultured; RBC Urine 30-100/HPF (0-5/HPF); Squamous Epithelial Cell Urine 5-10 /HPF (0-5/HPF); WBC Urine >100/HPF (0-5/HPF)
--- NOTE | 2023-10-11 11:01 | DI.CT.S_ITS ---
PROCEDURE: CT HEAD/BRAIN WO CON INDICATIONS: altered mentation TECHNIQUE: Noncontrast 4.5 mm thick angled axial sections acquired from the foramen magnum to the vertex, with coronal and sagittal reformats. For radiation dose reduction, the following was used: automated exposure control, adjustment of mA and/or kV according to patient size. COMPARISON: [facility], CT, CT HEAD/BRAIN WO CON, 06/26/2023, 14:32. FINDINGS: Image quality: Diagnostic. CSF spaces: Basal cisterns are patent. No extra-axial fluid collections. The ventricles are symmetric in size and shape. Brain: No intracranial bleeds or masses. There is moderate cerebral volume loss for age, with resultant ventricular and sulcal prominence. There are periventricular and deep white matter chronic small vessel ischemic changes. There is intracranial internal carotid artery atherosclerosis. Skull and face: Calvarium and visualized facial bones appear intact, without suspicious lesions. Sinuses: Visualized sinuses and mastoids are clear. IMPRESSION: No acute intracranial pathology. Moderate findings likely associated with chronic microvascular ischemic changes. Dictated by: Marianne Rockwell M.D. on 10/11/2023 at 12:19 Approved by: Marianne Rockwell M.D. on 10/11/2023 at 12:21
[2023-10-11 11:09] LABS: Add Manual Diff / Slide Review NO; Basophils Absolute Auto 100 /uL (0-100); Basophils Percent Auto 0.9 % (0-2); Eosinophils Absolute Auto 100 /uL (0-450); Eosinophils Percent Auto 2.2 % (2-4); Hematocrit 35.9 % (36-46); Hemoglobin 11.7 g/dL (12.0-16.0); Lymphocytes Absolute Auto 2300 /uL (1100-4500); Lymphocytes Percent Auto 37.7 % (25-40); Mean Corpuscular HGB Conc 32.5 % (30-36); Mean Corpuscular Hemoglobin 31.9 PG (26-34); Monocytes Absolute Auto 500 /uL (0-900); Monocytes Percent Auto 8.1 % (3-14); Neutrophils Absolute Auto 3100 /uL (1500-7000); Neutrophils Percent Auto 51.1 % (50-75); Platelet Count 206 X10^3/uL (150-400); Red Blood Cell Count 3.67 X10^6/uL (4.0-5.2); Red Cell Distribution Width 15.9 % (11.6-14.8); White Blood Cell Count 6.1 X10^3/uL (4.5-11.0)
[2023-10-11 11:18] LABS: Alanine Aminotransferase 22 IU/L (<35); Albumin 3.3 g/dL (3.5-5.0); Alkaline Phosphatase 131 U/L (38-126); Aspartate Aminotransferase 38 IU/L (14-36); BUN Creatinine Ratio 19.7 (6-22); Bilirubin Total 0.7 mg/dL (0.2-1.3); Blood Urea Nitrogen 14 mg/dL (7-17); Calcium 9.5 mg/dL (8.4-10.2); Carbon Dioxide 34 mmol/L (22-32); Chloride 104 mmol/L (98-107); Estimated Glomerular Filt Rate > 60 mL/min (>60); Globulin 3.4 g/dL (1.7-4.1); Glucose 99 mg/dL (80-110); Sodium 138 mmol/L (137-145); Total Protein 6.7 g/dL (6.3-8.2)
[2023-10-11 11:20] LABS: HEMOLYSIS 54 (0-50)
[2023-10-11 11:21] LABS: Potassium 4.8 mmol/L (3.4-5.1)
--- NOTE | 2023-10-11 11:24 | ED_ITS ---
HPI - Weakness General Chief complaint: Weakness Stated complaint: UTI Time Seen by Provider: 10/11/23 09:50 Source: EMS Mode of arrival: EMS History of Present Illness HPI Narrative: 88-year-old female with a history of atrial fibrillation pacemaker implant and stroke who is brought in by ambulance for altered mental status. Son is the historian he accompanies her additional history is obtained from EMS. Reportedly son contacted his mother on the telephone today her speech sounded slurred, also staff at the assisted living facility thought that she seemed confused. She has a history of atrial fibrillation and stroke, in his anticoagulated on Eliquis. The patient is a poor historian but is endorsing some dysuria. She has not been noted to have fevers or vomiting. Son also reports that she was described as being generally weak today. Has not had focal weakness. Patient is not endorsing any headache or chest pain. Related Data Home Medications Medication Instructions Recorded Confirmed allopurinol 100 mg tablet 100 mg PO DAILY 06/10/23 06/10/23 aspirin 81 mg capsule 81 mg PO DAILY 06/10/23 06/10/23 atorvastatin 40 mg tablet 40 mg PO DAILY 06/10/23 06/10/23 furosemide 20 mg tablet 20 mg PO DAILY 06/10/23 06/10/23 Previous Rx's Medication Instructions Recorded pantoprazole 40 mg tablet,delayed 40 mg PO DAILY #30 tabs 06/12/23 release (Protonix) cefdinir 300 mg capsule 300 mg PO BID #14 caps 10/11/23 Allergies Allergy/AdvReac Type Severity Reaction Status Date / Time colchicine Allergy Verified 10/11/23 09:52 NSAIDS (Non-Steroidal Allergy Verified 10/11/23 09:52 Anti-Inflamma Patient History Social History household members: other Smoking Status: Never smoker alcohol intake: never Smoking Status: Never smoker alcohol intake frequency: 0-2 drinks per day Substance Use Type: does not use Exam Initial Vital Signs Initial Vital Signs: Vital Signs Pulse Rate 75 10/11/23 09:33 Blood Pressure 143/68 H 10/11/23 09:33 Pulse Oximetry 96 10/11/23 09:33 Const Other: Elderly female, confused, cooperative tends to defer answering questions to her son HAILEY Head: normocephalic and atraumatic Eyes Other: Pupils are equal round and reactive extraocular movements are intact there is no nystagmus Neck Other: Supple Resp Effort & Inspection: normal respiratory effort Auscultation: clear to auscultation bilaterally Cardio Other: Regular rhythm rate no murmur or gallop, pacemaker implant noted GI Other: Abdomen is soft bowel sounds are normal there is suprapubic tenderness no guarding or rebound no CVAT Skin Other: Warm and dry Neuro Other: No facial droop or asymmetry, speech is fluent, no gross motor deficit not fully oriented to year this reportedly is her baseline Course Orders Ordered: ED Orders 10/11/23 09:55 CBC Auto Diff [Complete Blood Count AUTO DIFF] Stat CMP [Comprehensive Metabolic Panel] Stat 10/11/23 10:23 Urinalysis and Microscopic Stat Urine Culture Stat 10/11/23 11:01 CT head/brain wo con Stat Discontinued Medications Ceftriaxone Sodium 2,000 mg/ (Sodium Chloride) 100 mls @ 200 mls/hr IV NOW ONE Stop: 10/11/23 12:41 Vital Signs Vital signs: Vital Signs - 8 hr 10/11/23 09:33 10/11/23 09:33 10/11/23 09:47 Temperature 97.2 F L Pulse Rate 75 74 Respiratory Rate 17 Blood Pressure 143/68 H 143/68 H Pulse Oximetry 96 93 Oxygen Delivery Method Room Air 10/11/23 10:00 10/11/23 10:01 10/11/23 10:01 Temperature Pulse Rate 70 71 Respiratory Rate 13 13 Blood Pressure 128/68 Pulse Oximetry 92 94 Oxygen Delivery Method 10/11/23 10:30 10/11/23 10:31 10/11/23 10:31 Temperature Pulse Rate 74 74 Respiratory Rate 19 17 Blood Pressure 162/68 H Pulse Oximetry 93 94 Oxygen Delivery Method 10/11/23 11:00 10/11/23 11:01 10/11/23 11:01 Temperature Pulse Rate 77 75 Respiratory Rate 23 22 Blood Pressure 129/69 Pulse Oximetry 96 94 Oxygen Delivery Method Room Air 10/11/23 11:16 10/11/23 11:16 10/11/23 11:30 Temperature Pulse Rate 74 Respiratory Rate 17 Blood Pressure 166/80 H 158/75 H Pulse Oximetry 93 Oxygen Delivery Method 10/11/23 11:30 10/11/23 12:00 10/11/23 12:00 Temperature Pulse Rate 72 69 Respiratory Rate 16 24 Blood Pressure 161/84 H Pulse Oximetry 94 96 Oxygen Delivery Method 10/11/23 12:30 10/11/23 12:30 Temperature Pulse Rate 73 Respiratory Rate 21 Blood Pressure 177/79 H Pulse Oximetry 94 Oxygen Delivery Method MDM - Weakness Lab Data Lab results narrative: CBC with diff and CMP are unremarkable, urinalysis shows pyuria and bacteriuria 10/11/23 09:55 10/11/23 09:55 Labs: Lab Results 10/11/23 10/11/23 Range/Units 09:55 10:23 WBC 6.1 (4.5-11.0) X10^3/uL RBC 3.67 L (4.0-5.2) X10^6/uL Hgb 11.7 L (12.0-16.0) g/dL Hct 35.9 L (36-46) % MCV 98.0 (80-100) fL MCH 31.9 (26-34) PG MCHC 32.5 (30-36) % RDW 15.9 H (11.6-14.8) % Plt Count 206 (150-400) X10^3/uL Neut % (Auto) 51.1 (50-75) % Lymph % (Auto) 37.7 (25-40) % [place] % (Auto) 8.1 (3-14) % Eos % (Auto) 2.2 (2-4) % Baso % (Auto) 0.9 (0-2) % Neut # (Auto) 3100 (9509-1756) /uL Lymph # (Auto) 2300 (5634-9921) /uL [place] # (Auto) 500 (0-900) /uL Eos # (Auto) 100 (0-450) /uL Baso # (Auto) 100 (0-100) /uL Sodium 138 (137-145) mmol/L Potassium 4.8 (3.4-5.1) mmol/L Chloride 104 (98-107) mmol/L Carbon Dioxide 34 H (22-32) mmol/L BUN 14 (7-17) mg/dL Creatinine 0.71 (0.52-1.04) mg/dL Estimated GFR > 60 (>60) mL/min BUN/Creatinine Ratio 19.7 (6-22) Glucose 99 (80-110) mg/dL Calcium 9.5 (8.4-10.2) mg/dL Total Bilirubin 0.7 (0.2-1.3) mg/dL AST 38 H (14-36) IU/L ALT 22 (<35) IU/L Alkaline Phosphatase 131 H (38-126) U/L Total Protein 6.7 (6.3-8.2) g/dL Albumin 3.3 L (3.5-5.0) g/dL Globulin 3.4 (1.7-4.1) g/dL Albumin/Globulin Ratio 1.0 (1.0-2.8) Urine Color Yellow Urine Appearance Cloudy Urine pH 7.0 (4.5-8.0) Ur Specific [place] 1.020 (1.000-1.035) Urine Protein 1+ H (Negative) Urine Glucose (UA) Negative (Negative) g/dL Urine Ketones Negative (NEGATIVE) Urine Occult Blood 1+ H (Negative) Urine Nitrate Positive H (Negative) Urine Bilirubin Negative (NEGATIVE) Urine Urobilinogen 0.2 (0.2) E.U./dL Ur Leukocyte Esterase 3+ H (NEGATIVE) Urine RBC 30-100/hpf H (0-5/HPF) Urine WBC >100/hpf H (0-5/HPF) Ur Squamous Epith Cells 5-10 /hpf H (0-5/HPF) Urine Bacteria Many (>30) H (None) Ur Culture Indicated? Specimen cultured Vol Urine Centrifuged 10ml (spun) Imaging Data CT scan - head: My Impression: Independently reviewed, no acute findings Radiologist Impression: Per Radiology, no acute findings MDM Narrative Medical decision making narrative: 88-year-old female presenting with some increased confusion and concern for urinary tract infection. She has not febrile, she is appearing well hydrated without focal neurologic deficits. CT head is reassuring, labs are reassuring with respect to sepsis and electrolyte disturbance, does appear to have urinary tract infection. She was started on ceftriaxone in the ED and will continue cefdinir at home. Discharge to her previous care setting. Discharge Plan Departure Patient Disposition: Home Clinical Impression: Acute confusion due to infection Urinary tract infection Qualifiers: Urinary tract infection type: site unspecified Hematuria presence: without hematuria Qualified Code(s): N39.0 - Urinary tract infection, site not specified Activity Restrictions/Additional Instructions: ED evaluation today shows urinary tract infection. We have started antibiotics in the emergency department and I have sent a prescription for antibiotics to complete treatment. Continue other previous home medications. Return to the emergency department for fevers, frequent vomiting or other acute symptoms. Follow up soon with her primary care provider. Prescriptions: New cefdinir 300 mg capsule 300 mg PO BID Qty: 14 0RF No Action atorvastatin 40 mg Tablet 40 mg PO DAILY allopurinol 100 mg Tablet 100 mg PO DAILY furosemide 20 mg Tablet 20 mg PO DAILY Rx Instructions: Take daily in the afternoon aspirin 81 mg Capsule 81 mg PO DAILY pantoprazole [Protonix] 40 mg tablet,delayed release (DR/EC) 40 mg PO DAILY Qty: 30 0RF Referrals: Lala Garcia MD [Primary Care Provider] - Stand Alone Forms: Patient Portal/API
[2023-10-11] MEDS: cefTRIAXone 2,000 MG in SODIUM CHLORIDE 0.9% 100 ML 200 MG IV (12:52)
--- NOTE | 2023-10-11 13:07 | PC.NURSE ---
Addendum entered by Perla Mcdowell R.N. 10/11/23 13:32: Gave report to rima Wayne at 1330. Rosana, caregiver send the to [facility] in [place], [place]. Original Note: Attempted to give nurse to nurse report about the pt. Left a voice mail requesting a call back at [phone]. Called Corey at [phone]
== END 2023-10-11 13:54 | disposition home or self-care (01) ==
PROVIDERS: Emergency Provider Emergency Medicine; PCP Family Medicine
DX: R41.0 Disorientation, unspecified (principal); N39.0 Urinary tract infection, site not specified; R47.81 Slurred speech
CPT/HCPCS: 36415; 51701; 70450; 80053; 81001; 85025; 87077; 87086; 87186; 93005; 96365; 99284; J0696

== ENCOUNTER 2023-11-02 20:35 | Observation (INO) | payer OTHER, SELFPAY ==
[2023-06-10 22:04] VITALS: BMI 37.2
[2023-11-02] VITALS (12 sets, daily range): BP systolic 125–147; BP diastolic 62–72; PULSE 91–106; RESP 21–31; TEMP 36.4; O2SAT 86–98; BMI 29.9
--- NOTE | 2023-11-02 20:35 | DI.RAD.S_ITS ---
PROCEDURE: XR CHEST 1V INDICATIONS: suspected sepsis TECHNIQUE: One view of the chest was acquired. COMPARISON: [facility], CR, XR CHEST 1V, 06/26/2023, 17:01. [facility], CR, XR CHEST 2V, 06/14/2023, 15:07. FINDINGS: Rotated exam, limiting evaluation. Surgical changes and devices: Left chest wall pacemaker. Lungs and pleura: Lungs are clear. No pleural effusions or pneumothorax. Mediastinum: Mediastinal contours are not well evaluated due to positioning. Bones and chest wall: No suspicious bony lesions. Overlying soft tissues appear unremarkable. IMPRESSION: Rotated exam which limits evaluation. No definite acute abnormalities are seen. Dictated by: Derek Nichole M.D. on 11/02/2023 at 21:10 Approved by: Derek Nichole M.D. on 11/02/2023 at 21:11
[2023-11-02 21:02] LABS: Add Manual Diff / Slide Review NO; Basophils Absolute Auto 0 /uL (0-100); Basophils Percent Auto 0.6 % (0-2); Eosinophils Absolute Auto 100 /uL (0-450); Eosinophils Percent Auto 2.1 % (2-4); Hematocrit 33.3 % (36-46); Lymphocytes Absolute Auto 3100 /uL (1100-4500); Lymphocytes Percent Auto 45.4 % (25-40); Mean Corpuscular HGB Conc 33.2 % (30-36); Mean Corpuscular Hemoglobin 32.2 PG (26-34); Mean Corpuscular Volume 97.2 fL (80-100); Monocytes Absolute Auto 500 /uL (0-900); Monocytes Percent Auto 7.6 % (3-14); Neutrophils Absolute Auto 3000 /uL (1500-7000); Neutrophils Percent Auto 44.3 % (50-75); Platelet Count 149 X10^3/uL (150-400); Red Blood Cell Count 3.42 X10^6/uL (4.0-5.2); Red Cell Distribution Width 16.6 % (11.6-14.8); White Blood Cell Count 6.8 X10^3/uL (4.5-11.0)
[2023-11-02 21:14] LABS: INR 1.7 (0.9-1.3); Prothrombin Time 19.3 SECONDS (9.4-12.5)
[2023-11-02 21:17] LABS: Lactate (Lactic Acid) 1.6 mmol/L (0.7-2.1); PTT Partial Thromboplastin Tim 59 SECONDS (25.1-36.5)
[2023-11-02 21:18] LABS: Alanine Aminotransferase 22 IU/L (<35); Albumin 3.6 g/dL (3.5-5.0); Albumin Globulin Ratio 1.1 (1.0-2.8); Alkaline Phosphatase 123 U/L (38-126); Aspartate Aminotransferase 36 IU/L (14-36); Bilirubin Total 0.4 mg/dL (0.2-1.3); Blood Urea Nitrogen 19 mg/dL (7-17); Calcium 9.9 mg/dL (8.4-10.2); Carbon Dioxide 30 mmol/L (22-32); Chloride 100 mmol/L (98-107); Estimated Glomerular Filt Rate 41 mL/min (>60); Globulin 3.4 g/dL (1.7-4.1); Glucose 100 mg/dL (80-110); HEMOLYSIS < 15 (0-50); Lipase 69 U/L (23-300); Potassium 4.3 mmol/L (3.4-5.1); Sodium 133 mmol/L (137-145)
[2023-11-02 21:34] LABS: Procalcitonin 0.08 ng/mL (<0.5)
--- NOTE | 2023-11-02 23:16 | ED_ITS ---
HPI - Female Genitourinary General Chief complaint: Urogenital-Female Stated complaint: UTI x2 weeks Time Seen by Provider: 11/02/23 22:06 Source: patient, family, EMS and old records reviewed Mode of arrival: EMS History of Present Illness HPI Narrative: Patient 88-year-old female history of hypertension hyperlipidemia coronary artery disease, stroke pacemaker presenting today with increased confusion and shaking. She has been battling a UTI for about 2 weeks she has been on Bactrim and Keflex. However today in the ED she was also noted to be hypoxic requiring 2 L of oxygen. She lives in a [place] [facility]. She started having health decline last May she is now involved in palliative care. Son is at bedside. He says the shaking is new over the last couple of days she is unable to eat due to the severe shaking. Requiring oxygen is also new today she has not required that for. She has been afebrile here. She has no complaints except for shaking. She is taking Eliquis. She has a history of atrial flutter but now has pacemaker. Sound as though she got bradycardic with medication. Son reports that she is bed bound she does not walk her legs are overall weak Her left are irritated and has been for awhile according to the son they use erythromycin ointment. Son states that she called him 5 times within 15 minutes yesterday. 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 The shaking also started days ago. Related Data Home Medications Medication Instructions Recorded Confirmed allopurinol 100 mg tablet 100 mg PO DAILY 06/10/23 11/03/23 aspirin 81 mg capsule 81 mg PO DAILY 06/10/23 06/10/23 atorvastatin 40 mg tablet 40 mg PO DAILY 06/10/23 06/10/23 furosemide 20 mg tablet 20 mg PO DAILY 06/10/23 06/10/23 Previous Rx's Medication Instructions Recorded pantoprazole 40 mg tablet,delayed 40 mg PO DAILY #30 tabs 06/12/23 release (Protonix) cefdinir 300 mg capsule 300 mg PO BID #14 caps 10/11/23 cefdinir 300 mg capsule 300 mg PO BID #14 caps 10/11/23 Allergies Allergy/AdvReac Type Severity Reaction Status Date / Time colchicine Allergy Verified 11/02/23 21:32 NSAIDS (Non-Steroidal Allergy Verified 11/02/23 21:32 Anti-Inflamma Patient History alcohol intake frequency: 0-2 drinks per day Substance Use Type: does not use Exam Initial Vital Signs Initial Vital Signs: Vital Signs Temperature 97.6 F 11/02/23 20:35 Pulse Rate 102 H 11/02/23 20:35 Respiratory Rate 25 H 11/02/23 20:35 Blood Pressure 139/62 11/02/23 20:35 Pulse Oximetry 93 11/02/23 20:35 Oxygen Delivery Method Room Air 11/02/23 20:35 GENERAL: Pleasant alert 88-year-old female HEENT: Head atraumatic,EOMI, pupils reactive, left lower lid everted face symmetric, moist mucous membranes CARDIOVASCULAR: Regular rate and rhythm without murmurs, rubs or gallops. Paced rhythm RESPIRATORY: Breath sounds equal bilaterally, no wheezes rales or rhonchi. ABDOMEN: Soft, nontender. Normoactive bowel sounds all 4 quadrants. No guarding or rebound. EXTREMITIES: Normal range of motion, no clubbing or edema. Neurovascularly intact NEUROLOGICAL: Alert, can lift both right and left arm obvious shaking and legs and on SKIN: Warm, dry, no laceration, no petechiae, no rashes or lesions. Course Orders Ordered: ED Orders 11/02/23 20:35 XR chest 1V Stat EKG-12 Lead Stat RT Consult Eval and Treat NOW 11/02/23 20:50 Complete Blood Count AUTO DIFF Stat Comprehensive Metabolic Panel Stat Lactate (Lactic Acid) Stat Lipase Stat PTT Partial Thromboplastin Isacc Stat Procalcitonin Stat Prothrombin Time INR Stat 11/02/23 21:10 Blood Culture Stat 11/02/23 23:28 CT angio chest PE protocol Stat CT head/brain wo con Stat 11/03/23 00:22 Respiratory Panel (Film Array) Stat 11/03/23 01:06 BNP [NT-proBNP (BNP-Adult 18+)] Stat Acetaminophen (Acetaminophen 325 Mg Tablet) 650 mg PO Q6H PRN PRN Reason: Fever/Mild Pain (1-3) Albuterol (Albuterol 2.5 Mg/3 Ml Neb (Adult)) 2.5 mg INH [id number] PRN PRN Reason: Dyspnea Allopurinol (Allopurinol 100 Mg Tablet) 100 mg PO DAILY FABIO Aspirin (Aspirin Ec 81 Mg Tablet) 81 mg PO DAILY FABIO Atorvastatin Calcium (Atorvastatin 20 Mg Tablet) 40 mg PO DAILY [facility] Bisacodyl (Bisacodyl 10 Mg Supp) 10 mg MD DAILY PRN PRN Reason: Constipation Hydralazine HCl (Hydralazine 20 Mg/Ml Vial) 10 mg IV Q6HR PRN PRN Reason: SBP>= 160 or DBP >=110 Sodium Chloride (Normal Saline 0.9%) 1,000 mls @ 125 mls/hr IV CONT [facility] Last Admin: 11/02/23 23:54 Dose: 125 mls/hr Documented By: SB Sodium Chloride (Normal Saline 0.9%) 1,000 mls @ 100 mls/hr IV [facility] Last Admin: 11/03/23 03:27 Dose: 100 mls/hr Documented By: SH Melatonin (Melatonin 3 Mg Tablet) 9 mg PO BEDTIME PRN PRN Reason: insomnia Naloxone HCl (Naloxone 0.4 Mg/Ml Vial) 0.2 mg IV Q2MIN PRN PRN Reason: Opiate Reversal Ondansetron HCl (Ondansetron 4 Mg/2 Ml Inj) 4 mg IV NOW PRN PRN Reason: Nausea And Vomiting Ondansetron HCl (Ondansetron 4 Mg Odt) 4 mg SL NOW PRN PRN Reason: Nausea And Vomiting Ondansetron HCl (Ondansetron 4 Mg/2 Ml Inj) 4 mg IV Q8HR PRN PRN Reason: Nausea And Vomiting Oxycodone HCl (Oxycodone Ir 5 Mg Tablet) 5 mg PO Q3H PRN PRN Reason: Pain, Moderate (4-6) Pantoprazole Sodium (Pantoprazole Dr 40 Mg Tablet) 40 mg PO DAILY [facility] Prednisone (Prednisone 20 Mg Tablet) 40 mg PO DAILY [facility] Vital Signs Vital signs: Vital Signs - 8 hr 11/02/23 21:22 11/02/23 21:23 11/02/23 21:30 Pulse Rate 94 H Respiratory Rate 24 22 Blood Pressure Pulse Oximetry 86 L 96 95 Oxygen Delivery Method Room Air Nasal Cannula Nasal Cannula Oxygen Flow Rate 2 2 11/02/23 21:30 11/02/23 22:00 11/02/23 22:00 Pulse Rate 94 H Respiratory Rate Blood Pressure 142/63 H 147/62 H Pulse Oximetry 98 Oxygen Delivery Method Oxygen Flow Rate 11/02/23 22:30 11/02/23 22:31 11/02/23 22:31 Pulse Rate 94 H 94 H Respiratory Rate 21 23 Blood Pressure 131/72 Pulse Oximetry 98 98 Oxygen Delivery Method Oxygen Flow Rate 11/02/23 23:00 11/02/23 23:00 11/02/23 23:30 Pulse Rate 93 H 91 H Respiratory Rate 22 23 Blood Pressure 137/63 Pulse Oximetry 98 97 Oxygen Delivery Method Oxygen Flow Rate 11/02/23 23:30 11/03/23 00:30 11/03/23 00:51 Pulse Rate 102 H 93 H Respiratory Rate 24 Blood Pressure 147/65 H Pulse Oximetry 99 95 Oxygen Delivery Method Nasal Cannula Oxygen Flow Rate 2 11/03/23 00:51 11/03/23 01:00 11/03/23 01:01 Pulse Rate 92 H 92 H Respiratory Rate 26 H 24 Blood Pressure 141/71 H Pulse Oximetry 96 96 Oxygen Delivery Method Oxygen Flow Rate 11/03/23 01:01 11/03/23 01:30 11/03/23 01:31 Pulse Rate 98 H 95 H Respiratory Rate 20 20 Blood Pressure 134/61 Pulse Oximetry 98 96 Oxygen Delivery Method Nasal Cannula Oxygen Flow Rate 1.5 11/03/23 01:31 Pulse Rate Respiratory Rate Blood Pressure 153/72 H Pulse Oximetry Oxygen Delivery Method Oxygen Flow Rate MDM - Female Genitourinary Lab Data 11/02/23 20:50 11/02/23 20:50 Labs: Lab Results 11/02/23 11/02/23 11/03/23 Range/Units 20:44 20:50 00:22 WBC 6.8 (4.5-11.0) X10^3/uL RBC 3.42 L (4.0-5.2) X10^6/uL Hgb 11.0 L (12.0-16.0) g/dL Hct 33.3 L (36-46) % MCV 97.2 (80-100) fL MCH 32.2 (26-34) PG MCHC 33.2 (30-36) % RDW 16.6 H (11.6-14.8) % Plt Count 149 L (150-400) X10^3/uL Neut % (Auto) 44.3 L (50-75) % Lymph % (Auto) 45.4 H (25-40) % [place] % (Auto) 7.6 (3-14) % Eos % (Auto) 2.1 (2-4) % Baso % (Auto) 0.6 (0-2) % Neut # (Auto) 3000 (5260-4298) /uL Lymph # (Auto) 3100 (6602-6316) /uL [place] # (Auto) 500 (0-900) /uL Eos # (Auto) 100 (0-450) /uL Baso # (Auto) 0 (0-100) /uL PT 19.3 H (9.4-12.5) SECONDS INR 1.7 H (0.9-1.3) APTT 59 H (25.1-36.5) SECONDS Sodium 133 L (137-145) mmol/L Potassium 4.3 (3.4-5.1) mmol/L Chloride 100 (98-107) mmol/L Carbon Dioxide 30 (22-32) mmol/L BUN 19 H (7-17) mg/dL Creatinine 1.27 H (0.52-1.04) mg/dL Estimated GFR 41 L (>60) mL/min BUN/Creatinine Ratio 15.0 (6-22) Glucose 100 (80-110) mg/dL Lactate 1.6 (0.7-2.1) mmol/L Calcium 9.9 (8.4-10.2) mg/dL Total Bilirubin 0.4 (0.2-1.3) mg/dL AST 36 (14-36) IU/L ALT 22 (<35) IU/L Alkaline Phosphatase 123 (38-126) U/L NT-Pro-B Natriuret Pep 266 (<450) pg/mL Total Protein 7.0 (6.3-8.2) g/dL Albumin 3.6 (3.5-5.0) g/dL Globulin 3.4 (1.7-4.1) g/dL Albumin/Globulin Ratio 1.1 (1.0-2.8) Lipase 69 (23-300) U/L Procalcitonin 0.08 (<0.5) ng/mL Chlamy pneumoniae PCR Not detected (Not Detect) Adenovirus (PCR) Not detected (Not Detect) B.parapertussis DNA PCR Not detected (Not Detecte) Coronavirus OC43 (PCR) Not detected (Not Detect) Coronavirus HKU1 (PCR) Not detected (Not Detect) Coronavirus 229E (PCR) Not detected (Not Detect) SARS-CoV-2 (PCR) Not detected (Not Detecte) Coronavirus NL63 (PCR) Not detected (Not Detect) Human Metapneumovir PCR Not detected (Not Detect) Influenza Type A (PCR) Not detected (Not Detect) Influenza Type B (PCR) Not detected (Not Detect) M. pneumoniae (PCR) Not detected (Not Detect) Parainfluenza 1 (PCR) Not detected (Not Detect) Parainfluenza 2 (PCR) Not detected (Not Detect) Parainfluenza 3 (PCR) Not detected (Not Detect) Parainfluenza 4 (PCR) Not detected (Not Detect) RSV (PCR) Not detected (Not Detect) Entero/Rhino (PCR) Not detected (Not Detect) Urine Dip Bedside Urine Glucose Negative Bedside Urine Bilirubin - Negative Bedside Urine Ketone - Negative Urine Specific [place] 1.015 Bedside Urine Occult Blood - Negative Bedside Urine pH 6.0 Bedside Urine Protein - Negative Bedside Urine Urobilinogen - Negative Bedside Urine Nitrite - Negative Bedside Urine Leukocytes - Negative Esterase Imaging Data Chest x-ray: Radiologist's Impression: PROCEDURE: XR CHEST 1V INDICATIONS: suspected sepsis TECHNIQUE: One view of the chest was acquired. COMPARISON: [facility], , XR CHEST 1V, 06/26/2023, 17:01. [facility], , XR CHEST 2V, 06/14/2023, 15:07. FINDINGS: Rotated exam, limiting evaluation. Surgical changes and devices: Left chest wall pacemaker. Lungs and pleura: Lungs are clear. No pleural effusions or pneumothorax. Mediastinum: Mediastinal contours are not well evaluated due to positioning. Bones and chest wall: No suspicious bony lesions. Overlying soft tissues appear unremarkable. IMPRESSION: Rotated exam which limits evaluation. No definite acute abnormalities are seen. Dictated by: Derek Nichole M.D. on 11/02/2023 at 21:10 CT scan - chest: Radiologist's Impression: PROCEDURE: CT ANGIO CHEST PE PROTOCOL INDICATIONS: hypoxia TECHNIQUE: After the administration of intravenous contrast, 2 mm thick sections acquired from the pulmonary apices to the posterior costophrenic angles. 3-dimensional maximum intensity projection (MIP) coronal and sagittal reformats were then acquired through the thorax. For radiation dose reduction, the following was used: automated exposure control, adjustment of mA and/or kV according to patient size. COMPARISON: None. FINDINGS: Image quality: Diagnostic. Pulmonary arteries: Main pulmonary artery is dilated measuring 3.9 cm. No intraluminal filling defects to suggest central pulmonary embolism. Lower Neck: No enlarged lymph nodes. Thyroid: No thyroid nodules which require sonographic follow up, per consensus guidelines. Axillae: No enlarged lymph nodes. Chest Wall: Left chest wall pacemaker. Bones: Degenerative changes of the spine. Lungs and Pleura: No pneumothorax or pleural effusions. Elevation of the right hemidiaphragm. Bilateral lower lobe linear atelectasis versus scarring. Heart: Heart size is mildly enlarged. Mitral annular calcifications. Moderate coronary artery calcifications.. No pericardial effusion. Thoracic Vessels: No aortic aneurysm. Atherosclerotic vascular calcifications. Mediastinum and [place]: No enlarged lymph nodes. Esophagus: No wall thickening. Moderate to large hiatal hernia. Upper Abdomen: Diverticulosis without evidence of acute diverticulitis. IMPRESSION: No pulmonary embolus. No acute cardiopulmonary process. Dilated main pulmonary artery, suggestive of pulmonary hypertension. Moderate to large hiatal hernia. Atherosclerotic vascular calcifications with moderate coronary artery calcifications. Diverticulosis without evidence of acute diverticulitis. Dictated by: Derek Nichole M.D. on 11/03/2023 at 0:42 Approved by: Derek Nichole M.D. on 11/03/2023 at 0:49 CT scan - head: Radiologist's Impression: PROCEDURE: CT HEAD/BRAIN WO CON INDICATIONS: increased confusion TECHNIQUE: Noncontrast 4.5 mm thick angled axial sections acquired from the foramen magnum to the vertex, with coronal and sagittal reformats. For radiation dose reduction, the following was used: automated exposure control, adjustment of mA and/or kV according to patient size. COMPARISON: [facility], CT, CT HEAD/BRAIN WO CON, 10/11/2023, 11:11. FINDINGS: Image quality: Diagnostic. CSF spaces: Basal cisterns are patent. No extra-axial fluid collections. The ventricles are symmetric in size and shape. Brain: No intracranial bleeds or masses. There is cerebral volume loss for age, with resultant ventricular and sulcal prominence. There are periventricular and deep white matter chronic small vessel ischemic changes. There is intracranial internal carotid artery atherosclerosis. Skull and face: Calvarium and visualized facial bones appear intact, without suspicious lesions. Lens replacements. Sinuses: Visualized sinuses and mastoids are clear. IMPRESSION: No acute intracranial pathology. Dictated by: Derek Nichole M.D. on 11/03/2023 at 0:39 MDM Narrative Medical decision making narrative: MDM CC: CVA, pacemaker, atrial fibrillation on Eliquis Complicating co-morbidities: [ ] Corroborating data: [ ] Data collected from: [ ] Medical records reviewed: Previous admission and ED visits Differential considered: Infection including UTI pneumonia, pulmonary embolism, congestive heart failure, COVID, CVA Exam documented above, pertinent findings include: Inverted left lid. Obvious tremors hypoxic 85-86% on room air requiring 2 L Lab Test results independently reviewed as above. Pertinent findings: Urinalysis does not show UTI, WBC 6.8, hemoglobin 11.0 hematocrit 33.3, sodium 133, potassium 4.3, chloride 100, bicarb 30, BUN 19, creatinine 1.27 previously 0.71, glucose 100, lactate 1.6, BNP 266, Independently reviewed EKG as above Imaging studies independently reviewed: Chest x-ray no obvious cause of hypoxia, CT angio does show large hiatal hernia with dilated main pulmonary artery probably pulmonary hypertension, no pulmonary embolism. Head CT no intracranial mass or hemorrhage Consultations: [ ] Treatments: 2 L of oxygen Re-evaluations: [ ] Discussion: Patient presents today with increased confusion. No obvious cause of her confusion is found. She not found to have a UTI despite having 1 recently. She previously had a E coli UTI that was pansensitive. Viral panel is also negative. She is requiring least 2 L of oxygen. Unclear why at this time. Her viral panel is negative no pulmonary embolism no pneumonia congestive heart failure or other. She has not oxygen. She does have a hiatal hernia and pulmonary hypertension. Her kidney function is also slightly elevated 1.2 previously 0.7. She is given IV fluids. At this time she is requiring oxygen his metabolic encephalopathy. It is unclear why. It does seem to be new according to the son he is very involved in care and helps out a lot. Dr. Velez accepts patient Discharge Plan Departure Patient Disposition: Admitted as Observation Clinical Impression: Hypoxia, JENNY (acute kidney injury), Acute metabolic encephalopathy Admit Date/Time: 11/03/23 01:56 Admit Provider: Toby Velez
--- NOTE | 2023-11-02 23:28 | DI.CT.S_ITS ---
PROCEDURE: CT ANGIO CHEST PE PROTOCOL INDICATIONS: hypoxia TECHNIQUE: After the administration of intravenous contrast, 2 mm thick sections acquired from the pulmonary apices to the posterior costophrenic angles. 3-dimensional maximum intensity projection (MIP) coronal and sagittal reformats were then acquired through the thorax. For radiation dose reduction, the following was used: automated exposure control, adjustment of mA and/or kV according to patient size. COMPARISON: None. FINDINGS: Image quality: Diagnostic. Pulmonary arteries: Main pulmonary artery is dilated measuring 3.9 cm. No intraluminal filling defects to suggest central pulmonary embolism. Lower Neck: No enlarged lymph nodes. Thyroid: No thyroid nodules which require sonographic follow up, per consensus guidelines. Axillae: No enlarged lymph nodes. Chest Wall: Left chest wall pacemaker. Bones: Degenerative changes of the spine. Lungs and Pleura: No pneumothorax or pleural effusions. Elevation of the right hemidiaphragm. Bilateral lower lobe linear atelectasis versus scarring. Heart: Heart size is mildly enlarged. Mitral annular calcifications. Moderate coronary artery calcifications.. No pericardial effusion. Thoracic Vessels: No aortic aneurysm. Atherosclerotic vascular calcifications. Mediastinum and [place]: No enlarged lymph nodes. Esophagus: No wall thickening. Moderate to large hiatal hernia. Upper Abdomen: Diverticulosis without evidence of acute diverticulitis. IMPRESSION: No pulmonary embolus. No acute cardiopulmonary process. Dilated main pulmonary artery, suggestive of pulmonary hypertension. Moderate to large hiatal hernia. Atherosclerotic vascular calcifications with moderate coronary artery calcifications. Diverticulosis without evidence of acute diverticulitis. Dictated by: Derek Nichole M.D. on 11/03/2023 at 0:42 Approved by: Derek Nichole M.D. on 11/03/2023 at 0:49
--- NOTE | 2023-11-02 23:28 | DI.CT.S_ITS ---
PROCEDURE: CT HEAD/BRAIN WO CON INDICATIONS: increased confusion TECHNIQUE: Noncontrast 4.5 mm thick angled axial sections acquired from the foramen magnum to the vertex, with coronal and sagittal reformats. For radiation dose reduction, the following was used: automated exposure control, adjustment of mA and/or kV according to patient size. COMPARISON: [facility], CT, CT HEAD/BRAIN WO CON, 10/11/2023, 11:11. FINDINGS: Image quality: Diagnostic. CSF spaces: Basal cisterns are patent. No extra-axial fluid collections. The ventricles are symmetric in size and shape. Brain: No intracranial bleeds or masses. There is cerebral volume loss for age, with resultant ventricular and sulcal prominence. There are periventricular and deep white matter chronic small vessel ischemic changes. There is intracranial internal carotid artery atherosclerosis. Skull and face: Calvarium and visualized facial bones appear intact, without suspicious lesions. Lens replacements. Sinuses: Visualized sinuses and mastoids are clear. IMPRESSION: No acute intracranial pathology. Dictated by: Derek Nichole M.D. on 11/03/2023 at 0:39 Approved by: Derek Nichole M.D. on 11/03/2023 at 0:40
[2023-11-02] MEDS: SODIUM CHLORIDE 0.9% 1,000 ML 125 ML IV (23:54)
[2023-11-03] VITALS (12 sets, daily range): BP systolic 134–161; BP diastolic 61–81; PULSE 65–102; RESP 16–26; TEMP 35.6–36.4; O2SAT 94–99; BMI 26.4
[2023-11-03 01:33] LABS: NT-proBNP (BNP-Adult 18+) 266 pg/mL (<450)
[2023-11-03 01:36] LABS: Adenovirus Not Detected (Not Detect); B. parapertussis Not Detected (Not Detecte); Bordetella pertussis Not Detected (Not Detect); Chlamydophila pneumoniae Not Detected (Not Detect); Coronavirus 229E Not Detected (Not Detect); Coronavirus HKU1 Not Detected (Not Detect); Coronavirus NL 63 Not Detected (Not Detect); Coronavirus OC43 Not Detected (Not Detect); Human Metapneumovirus Not Detected (Not Detect); Human Rhinovirus/Enterovirus Not Detected (Not Detect); Influenza A Not Detected (Not Detect); Influenza B Not Detected (Not Detect); Mycoplasma pneumoniae Not Detected (Not Detect); Parainfluenza Virus 1 Not Detected (Not Detect); Parainfluenza Virus 2 Not Detected (Not Detect); Parainfluenza Virus 3 Not Detected (Not Detect); Parainfluenza Virus 4 Not Detected (Not Detect); Respiratory Syncytial Virus Not Detected (Not Detect); SARS- CoV-2 Not Detected (Not Detecte)
[2023-11-03] MEDS: SODIUM CHLORIDE 0.9% 1,000 ML 100 ML IV ×3 (03:27→20:39)
--- NOTE | 2023-11-03 03:54 | PC.ADMIT ---
[facility] from ED at 02:45 by stretcher. She was transferred to bed using slide board. Alert and oriented to self, place, and situation, some confusion noted. Reports left shoulder pain, but denies recent fall or injury. Declines pain medication or ice pack stating that she doesn't like to take many medications. NS @ 125/hr. She is on oxygen, 98% on 2 L. Oriented to room and call light. Bed in low, locked position, and call light within reach. Son took all personal items home before transferring to AC. The patient,Kayleigh Ely,88 y/o, was given written information regarding hospital policies, unit procedures and contact persons. Patient's smoking status: Never smoker. Vital Signs - 8 hr 11/02/23 20:35 11/02/23 20:38 11/02/23 20:38 Temperature 97.6 F Pulse Rate 102 H 106 H Respiratory Rate 25 H Blood Pressure 139/62 139/62 Pulse Oximetry 93 91 Oxygen Delivery Method Room Air Oxygen Flow Rate 11/02/23 21:00 11/02/23 21:01 11/02/23 21:01 Temperature Pulse Rate 100 H 98 H Respiratory Rate 30 H 31 H Blood Pressure 125/66 Pulse Oximetry 93 94 Oxygen Delivery Method Oxygen Flow Rate 11/02/23 21:22 11/02/23 21:23 11/02/23 21:30 Temperature Pulse Rate 94 H Respiratory Rate 24 22 Blood Pressure Pulse Oximetry 86 L 96 95 Oxygen Delivery Method Room Air Nasal Cannula Nasal Cannula Oxygen Flow Rate 2 2 11/02/23 21:30 11/02/23 22:00 11/02/23 22:00 Temperature Pulse Rate 94 H Respiratory Rate Blood Pressure 142/63 H 147/62 H Pulse Oximetry 98 Oxygen Delivery Method Oxygen Flow Rate 11/02/23 22:30 11/02/23 22:31 11/02/23 22:31 Temperature Pulse Rate 94 H 94 H Respiratory Rate 21 23 Blood Pressure 131/72 Pulse Oximetry 98 98 Oxygen Delivery Method Oxygen Flow Rate 11/02/23 23:00 11/02/23 23:00 11/02/23 23:30 Temperature Pulse Rate 93 H 91 H Respiratory Rate 22 23 Blood Pressure 137/63 Pulse Oximetry 98 97 Oxygen Delivery Method Oxygen Flow Rate 11/02/23 23:30 11/03/23 00:30 11/03/23 00:51 Temperature Pulse Rate 102 H 93 H Respiratory Rate 24 Blood Pressure 147/65 H Pulse Oximetry 99 95 Oxygen Delivery Method Nasal Cannula Oxygen Flow Rate 2 11/03/23 00:51 11/03/23 01:00 11/03/23 01:01 Temperature Pulse Rate 92 H 92 H Respiratory Rate 26 H 24 Blood Pressure 141/71 H Pulse Oximetry 96 96 Oxygen Delivery Method Oxygen Flow Rate 11/03/23 01:01 11/03/23 01:30 11/03/23 01:31 Temperature Pulse Rate 98 H 95 H Respiratory Rate 20 20 Blood Pressure 134/61 Pulse Oximetry 98 96 Oxygen Delivery Method Nasal Cannula Oxygen Flow Rate 1.5 11/03/23 01:31 11/03/23 02:03 11/03/23 02:45 Temperature 97.6 F Pulse Rate 90 Respiratory Rate 16 Blood Pressure 153/72 H 154/73 H Pulse Oximetry 98 Oxygen Delivery Method Nasal Cannula Oxygen Flow Rate 2
--- NOTE | 2023-11-03 04:23 | P.HP_ITS ---
History of Present Illness History of Present Illness Chief complaint: UTI x2 weeks Narrative: 88 years old female with history of hypertension, hyperlipidemia, GERD, CHF, CVA, CAD, atrial fibrillation not on any anticoagulation therapy, pacemaker presented to the ER with increased confusion and shaking. The patient was seen in the ED 2 weeks ago for UTI and was sent home on Bactrim and Keflex. She started having health decline last May and now involved in palliative care. Lives in group homes. The patient's son stated her shaking is new over the last couple of days and unable to eat due to severe shaking. The patient is bedbound and unable to walk due to generalized weakness. In the ED she was found to be hypoxic requiring 2 L of oxygen. The patient is poor historian. Laboratory shows WBC 6.8, H&H 11/33.3, sodium 133, potassium 4.3, creatinine 1.27, blood sugar 100. Respiratory viral panel negative, UA negative, chest x-ray negative. CT of the head unremarkable. CTA of the chest no acute findings. In the ER she was given fluid bolus, Zofran. COUNT INCLUDES THE [facility] Social History household members: other Smoking Status: Never smoker alcohol intake: never Meds Home Medications and Allergies Home Medications Medication Instructions Recorded Confirmed Type allopurinol 100 mg tablet 100 mg PO DAILY 06/10/23 06/10/23 History aspirin 81 mg capsule 81 mg PO DAILY 06/10/23 06/10/23 History atorvastatin 40 mg tablet 40 mg PO DAILY 06/10/23 06/10/23 History furosemide 20 mg tablet 20 mg PO DAILY 06/10/23 06/10/23 History pantoprazole 40 mg tablet,delayed 40 mg PO DAILY #30 tabs 06/12/23 Rx release (Protonix) cefdinir 300 mg capsule 300 mg PO BID #14 caps 10/11/23 Rx cefdinir 300 mg capsule 300 mg PO BID #14 caps 10/11/23 Rx Allergies Allergy/AdvReac Type Severity Reaction Status Date / Time colchicine Allergy Verified 11/02/23 21:32 NSAIDS (Non-Steroidal Allergy Verified 11/02/23 21:32 Anti-Inflamma Review of Systems Review of Systems ROS: Yes All systems reviewed with the patient and are negative except as otherwise documented Constitutional Constitutional: Reports as per HPI and Reports system reviewed and no additional complaints, except as documented Eyes Eyes: Reports as per HPI and Reports system reviewed and no additional complaints, except as documented ENT Ears, Nose, Mouth, and Throat: Yes as per HPI and Yes system reviewed and no additional complaints, except as documented Cardiovascular Cardiovascular: Reports system reviewed and no additional complaints, except as documented Respiratory Respiratory: Reports system reviewed and no additional complaints, except as documented Gastrointestinal Gastrointestinal: Reports system reviewed and no additional complaints, except as documented Genitourinary Genitourinary: Reports system reviewed and no additional complaints, except as documented Musculoskeletal Musculoskeletal: Reports system reviewed and no additional complaints, except as documented, Reports abnormal gait and Reports numbness Neurologic Neurologic: Reports system reviewed and no additional complaints, except as documented, Reports abnormal gait, Reports confusion and Reports numbness Psychiatric Psychiatric: Reports system reviewed and no additional complaints, except as documented and Reports confusion Exam Vital Signs (past 8 hours): - 11/02/23 20:35 11/02/23 20:38 11/02/23 20:38 Temperature 97.6 F Pulse Rate 102 H 106 H Respiratory Rate 25 H Blood Pressure 139/62 139/62 Pulse Oximetry 93 91 Oxygen Delivery Method Room Air Oxygen Flow Rate 11/02/23 21:00 11/02/23 21:01 11/02/23 21:01 Temperature Pulse Rate 100 H 98 H Respiratory Rate 30 H 31 H Blood Pressure 125/66 Pulse Oximetry 93 94 Oxygen Delivery Method Oxygen Flow Rate 11/02/23 21:22 11/02/23 21:23 11/02/23 21:30 Temperature Pulse Rate 94 H Respiratory Rate 24 22 Blood Pressure Pulse Oximetry 86 L 96 95 Oxygen Delivery Method Room Air Nasal Cannula Nasal Cannula Oxygen Flow Rate 2 2 11/02/23 21:30 11/02/23 22:00 11/02/23 22:00 Temperature Pulse Rate 94 H Respiratory Rate Blood Pressure 142/63 H 147/62 H Pulse Oximetry 98 Oxygen Delivery Method Oxygen Flow Rate 11/02/23 22:30 11/02/23 22:31 11/02/23 22:31 Temperature Pulse Rate 94 H 94 H Respiratory Rate 21 23 Blood Pressure 131/72 Pulse Oximetry 98 98 Oxygen Delivery Method Oxygen Flow Rate 11/02/23 23:00 11/02/23 23:00 11/02/23 23:30 Temperature Pulse Rate 93 H 91 H Respiratory Rate 22 23 Blood Pressure 137/63 Pulse Oximetry 98 97 Oxygen Delivery Method Oxygen Flow Rate 11/02/23 23:30 11/03/23 00:30 11/03/23 00:51 Temperature Pulse Rate 102 H 93 H Respiratory Rate 24 Blood Pressure 147/65 H Pulse Oximetry 99 95 Oxygen Delivery Method Nasal Cannula Oxygen Flow Rate 2 11/03/23 00:51 11/03/23 01:00 11/03/23 01:01 Temperature Pulse Rate 92 H 92 H Respiratory Rate 26 H 24 Blood Pressure 141/71 H Pulse Oximetry 96 96 Oxygen Delivery Method Oxygen Flow Rate 11/03/23 01:01 11/03/23 01:30 11/03/23 01:31 Temperature Pulse Rate 98 H 95 H Respiratory Rate 20 20 Blood Pressure 134/61 Pulse Oximetry 98 96 Oxygen Delivery Method Nasal Cannula Oxygen Flow Rate 1.5 11/03/23 01:31 11/03/23 02:03 11/03/23 02:45 Temperature 97.6 F Pulse Rate 90 Respiratory Rate 16 Blood Pressure 153/72 H 154/73 H Pulse Oximetry 98 Oxygen Delivery Method Nasal Cannula Oxygen Flow Rate 2 Oxygen Delivery Method Nasal Cannula Oxygen Flow Rate 2 Const General: cooperative, comfortable and well developed Orientation: alert and oriented x3 HENCT Head: normal to inspection, normocephalic and atraumatic Face and sinus: normal facial exam Mouth: oral mucosae normal and moist mucous membranes Throat: posterior oropharynx normal Eyes General: appearance normal, both eyes and all related structures Pupils: PERRL EOM: EOM intact bilaterally Neck Neck: normal visual inspection and full ROM Chest Chest: normal inspection of the chest Resp Effort & Inspection: normal respiratory effort and able to speak in complete sentences Auscultation: clear to auscultation bilaterally Cardio Palpation: normal PMI Rate: regular rate Rhythm: regular rhythm Heart Sounds: S1 normal and S2 normal GI Inspection: normal to inspection Palpation: soft and no hepatosplenomegaly Auscultation: normal bowel sounds Skin General: no rashes or lesions noted Lesions: no lesions Rashes: no rashes Trauma: no lacerations or abrasions Neuro General: patient alert, patient awake, patient oriented x3 and no focal motor deficits Cranial Nerves: CN's II-XI intact bilaterally Cognition: normal cognition Speech: speech normal Gait: normal gait Motor: muscle tone normal throughout Sensory Exam: no sensory deficits noted Extrem General: full ROM and no calf tenderness Psych Appearance: grossly normal Mental Status: mental status grossly normal Speech and Movement: speech and movement normal Objective Labs 11/02/23 20:50 11/02/23 20:50 Labs: Laboratory Results - last 24 hr 11/02/23 11/02/23 11/03/23 20:44 20:50 00:22 WBC 6.8 RBC 3.42 L Hgb 11.0 L Hct 33.3 L MCV 97.2 MCH 32.2 MCHC 33.2 RDW 16.6 H Plt Count 149 L Neut % (Auto) 44.3 L Lymph % (Auto) 45.4 H [place] % (Auto) 7.6 Eos % (Auto) 2.1 Baso % (Auto) 0.6 Neut # (Auto) 3000 Lymph # (Auto) 3100 [place] # (Auto) 500 Eos # (Auto) 100 Baso # (Auto) 0 PT 19.3 H INR 1.7 H APTT 59 H Sodium 133 L Potassium 4.3 Chloride 100 Carbon Dioxide 30 BUN 19 H Creatinine 1.27 H Estimated GFR 41 L BUN/Creatinine Ratio 15.0 Glucose 100 Lactate 1.6 Calcium 9.9 Total Bilirubin 0.4 AST 36 ALT 22 Alkaline Phosphatase 123 NT-Pro-B Natriuret Pep 266 Total Protein 7.0 Albumin 3.6 Globulin 3.4 Albumin/Globulin Ratio 1.1 Lipase 69 Procalcitonin 0.08 Chlamy pneumoniae PCR Not detected Adenovirus (PCR) Not detected B.parapertussis DNA PCR Not detected Coronavirus OC43 (PCR) Not detected Coronavirus HKU1 (PCR) Not detected Coronavirus 229E (PCR) Not detected SARS-CoV-2 (PCR) Not detected Coronavirus NL63 (PCR) Not detected Human Metapneumovir PCR Not detected Influenza Type A (PCR) Not detected Influenza Type B (PCR) Not detected M. pneumoniae (PCR) Not detected Parainfluenza 1 (PCR) Not detected Parainfluenza 2 (PCR) Not detected Parainfluenza 3 (PCR) Not detected Parainfluenza 4 (PCR) Not detected RSV (PCR) Not detected Entero/Rhino (PCR) Not detected Assessment & Plan Assessment & Plan narrative: Acute respiratory failure with hypoxia. Etiology unclear. CT of the chest negative for PE. The patient denies any smoking or diagnosed with COPD. -Continue oxygen supplement to keep her oxygenation greater than 92% -Albuterol as needed -Start prednisone 40 mg daily Acute kidney injury. Presented with creatinine 1.27. Baseline around 0.7?0.9. -Will start IV fluids -BMP daily -Avoid potentially nephrotoxic medications -Adjust medications according to GFR. Hyperlipidemia. Restart Lipitor. GERD. Restart Protonix. CAD. Restart aspirin, statins CHF. Restart aspirin, statins. Hold Lasix for now Gout. Restart allopurinol. Time Spent With Patient Time with patient: 50 to 69 minutes with 50% spent counseling/coordinating care Quality VTE Deep Vein Thrombosis/Pulmonary Embolism Present on Admission: No MIPS - Admit I confirm the patient?s Advance Care Plan is present, Code status is documented, Surrogate decision maker is in patient?s record [If Yes, STOP here]: Yes MIPS - Meds 'Current medications' to include all prescriptions, [id number] products, herbals, cannabis/cannabidiol products, and vitamin/mineral/dietary (nutritional) supplements. I have utilized all available resources to obtain, update, or review the patient?s current medications. [If Yes, STOP here]: Yes
--- NOTE | 2023-11-03 04:54 | PC.WOUNDPHOT ---
callus to left foot
[2023-11-03 06:12] LABS: Alanine Aminotransferase 21 IU/L (<35); Albumin 3.3 g/dL (3.5-5.0); Alkaline Phosphatase 123 U/L (38-126); Aspartate Aminotransferase 34 IU/L (14-36); Bilirubin Total 0.4 mg/dL (0.2-1.3); Blood Urea Nitrogen 17 mg/dL (7-17); Calcium 9.7 mg/dL (8.4-10.2); Carbon Dioxide 30 mmol/L (22-32); Chloride 104 mmol/L (98-107); Estimated Glomerular Filt Rate 43 mL/min (>60); Globulin 3.2 g/dL (1.7-4.1); Glucose 72 mg/dL (80-110); HEMOLYSIS < 15 (0-50); Magnesium 1.7 mg/dL (1.6-2.3); Potassium 4.4 mmol/L (3.4-5.1); Sodium 137 mmol/L (137-145); Total Protein 6.5 g/dL (6.3-8.2)
[2023-11-03 06:52] LABS: Thyroid Stimulating Hormone 4.56 uIU/mL (0.47-4.68)
--- NOTE | 2023-11-03 07:59 | PM.HP.1 ---
History of Present Illness History of Present Illness Date Patient Seen: 11/03/23 Chief complaint: UTI x2 weeks Narrative: From night doctor: 88 years old female with history of hypertension, hyperlipidemia, GERD, CHF, CVA, CAD, atrial fibrillation not on any anticoagulation therapy, pacemaker presented to the ER with increased confusion and shaking. The patient was seen in the ED 2 weeks ago for UTI and was sent home on Bactrim and Keflex. She started having health decline last May and now involved in palliative care. Lives in long-term. The patient's son stated her shaking is new over the last couple of days and unable to eat due to severe shaking. The patient is bedbound and unable to walk due to generalized weakness. In the ED she was found to be hypoxic requiring 2 L of oxygen. The patient is poor historian. Laboratory shows WBC 6.8, H&H 11/33.3, sodium 133, potassium 4.3, creatinine 1.27, blood sugar 100. Respiratory viral panel negative, UA negative, chest x-ray negative. CT of the head unremarkable. CTA of the chest no acute findings. In the ER she was given fluid bolus, Zofran. The patient notes that she has had more shaking of her arms recently. She denies any confusion today. She also denies any nausea, or abdominal pain. She did eat breakfast, but did not have lunch. [facility] Social History household members: other Smoking Status: Never smoker alcohol intake: never Meds Home Medications and Allergies Home Medications Medication Instructions Recorded Confirmed Type allopurinol 100 mg tablet 100 mg PO DAILY 06/10/23 11/03/23 History aspirin 81 mg capsule 81 mg PO DAILY 06/10/23 11/03/23 History furosemide 20 mg tablet 20 mg PO DAILY 06/10/23 06/10/23 History pantoprazole 40 mg tablet,delayed 40 mg PO DAILY #30 tabs 06/12/23 Rx release (Protonix) apixaban 5 mg tablet (Eliquis) 5 mg PO BID 11/03/23 11/03/23 History atorvastatin 20 mg tablet 20 mg PO QPM 11/03/23 11/03/23 History duloxetine 20 mg capsule,delayed 20 mg PO DAILY 11/03/23 11/03/23 History release memantine 5 mg tablet 5 mg PO ONCE PM 11/03/23 11/03/23 History metoprolol succinate 25 mg 12.5 mg PO DAILY 11/03/23 11/03/23 History tablet,extended release 24 hr sennosides 8.6 mg tablet 8.6 mg PO QPM 11/03/23 11/03/23 History Allergies Allergy/AdvReac Type Severity Reaction Status Date / Time colchicine Allergy Verified 11/02/23 21:32 NSAIDS (Non-Steroidal Allergy Verified 11/02/23 21:32 Anti-Inflamma Review of Systems Review of Systems Narrative: All else reviewed and otherwise unremarkable except as noted in the history and physical. Exam Vital Signs (past 8 hours): - 11/03/23 00:30 11/03/23 00:51 11/03/23 00:51 Temperature Pulse Rate 102 H 93 H Respiratory Rate 24 Blood Pressure 141/71 H Pulse Oximetry 99 95 Oxygen Delivery Method Nasal Cannula Oxygen Flow Rate 2 Fraction of Inspired Oxygen 11/03/23 01:00 11/03/23 01:01 11/03/23 01:01 Temperature Pulse Rate 92 H 92 H Respiratory Rate 26 H 24 Blood Pressure 134/61 Pulse Oximetry 96 96 Oxygen Delivery Method Oxygen Flow Rate Fraction of Inspired Oxygen 11/03/23 01:30 11/03/23 01:31 11/03/23 01:31 Temperature Pulse Rate 98 H 95 H Respiratory Rate 20 20 Blood Pressure 153/72 H Pulse Oximetry 98 96 Oxygen Delivery Method Nasal Cannula Oxygen Flow Rate 1.5 Fraction of Inspired Oxygen 11/03/23 02:03 11/03/23 02:45 11/03/23 07:58 Temperature 97.6 F Pulse Rate 90 Respiratory Rate 16 Blood Pressure 154/73 H Pulse Oximetry 98 98 Oxygen Delivery Method Nasal Cannula Nasal Cannula Oxygen Flow Rate 2 2 Fraction of Inspired Oxygen 28 Fraction of Inspired Oxygen 28 SaO2/FiO2 Ratio 350 Oxygen Delivery Method Nasal Cannula Oxygen Flow Rate 2 Narrative Exam Narrative: NAD, alert and oriented, fluent speech, calm. Normocephalic skull, EOMI, anicteric sclera, symmetric pupils. Left eye stays closed. Oropharynx unremarkable, no facial droop. Neck supple, midline trachea, no adenopathy. Lungs clear, normal rate and effort. Heart regular, no murmur gallop or rub. Abdomen is soft, non distended and non tender. Extremities are free of edema. Skin is free of rash or lesions. Joints are not swollen or deformed. Judgment appears to be normal. Objective Labs 11/02/23 20:50 11/03/23 05:31 Labs: Laboratory Results - last 24 hr 11/02/23 11/02/23 11/03/23 20:44 20:50 00:22 WBC 6.8 RBC 3.42 L Hgb 11.0 L Hct 33.3 L MCV 97.2 MCH 32.2 MCHC 33.2 RDW 16.6 H Plt Count 149 L Neut % (Auto) 44.3 L Lymph % (Auto) 45.4 H [place] % (Auto) 7.6 Eos % (Auto) 2.1 Baso % (Auto) 0.6 Neut # (Auto) 3000 Lymph # (Auto) 3100 [place] # (Auto) 500 Eos # (Auto) 100 Baso # (Auto) 0 PT 19.3 H INR 1.7 H APTT 59 H Sodium 133 L Potassium 4.3 Chloride 100 Carbon Dioxide 30 BUN 19 H Creatinine 1.27 H Estimated GFR 41 L BUN/Creatinine Ratio 15.0 Glucose 100 Lactate 1.6 Calcium 9.9 Magnesium Total Bilirubin 0.4 AST 36 ALT 22 Alkaline Phosphatase 123 NT-Pro-B Natriuret Pep 266 Total Protein 7.0 Albumin 3.6 Globulin 3.4 Albumin/Globulin Ratio 1.1 Lipase 69 Procalcitonin 0.08 TSH Chlamy pneumoniae PCR Not detected Adenovirus (PCR) Not detected B.parapertussis DNA PCR Not detected Coronavirus OC43 (PCR) Not detected Coronavirus HKU1 (PCR) Not detected Coronavirus 229E (PCR) Not detected SARS-CoV-2 (PCR) Not detected Coronavirus NL63 (PCR) Not detected Human Metapneumovir PCR Not detected Influenza Type A (PCR) Not detected Influenza Type B (PCR) Not detected M. pneumoniae (PCR) Not detected Parainfluenza 1 (PCR) Not detected Parainfluenza 2 (PCR) Not detected Parainfluenza 3 (PCR) Not detected Parainfluenza 4 (PCR) Not detected RSV (PCR) Not detected Entero/Rhino (PCR) Not detected 11/03/23 05:31 WBC RBC Hgb Hct MCV MCH MCHC RDW Plt Count Neut % (Auto) Lymph % (Auto) [place] % (Auto) Eos % (Auto) Baso % (Auto) Neut # (Auto) Lymph # (Auto) [place] # (Auto) Eos # (Auto) Baso # (Auto) PT INR APTT Sodium 137 Potassium 4.4 Chloride 104 Carbon Dioxide 30 BUN 17 Creatinine 1.21 H Estimated GFR 43 L BUN/Creatinine Ratio 14.0 Glucose 72 L Lactate Calcium 9.7 Magnesium 1.7 Total Bilirubin 0.4 AST 34 ALT 21 Alkaline Phosphatase 123 NT-Pro-B Natriuret Pep Total Protein 6.5 Albumin 3.3 L Globulin 3.2 Albumin/Globulin Ratio 1.0 Lipase Procalcitonin TSH 4.56 Chlamy pneumoniae PCR Adenovirus (PCR) B.parapertussis DNA PCR Coronavirus OC43 (PCR) Coronavirus HKU1 (PCR) Coronavirus 229E (PCR) SARS-CoV-2 (PCR) Coronavirus NL63 (PCR) Human Metapneumovir PCR Influenza Type A (PCR) Influenza Type B (PCR) M. pneumoniae (PCR) Parainfluenza 1 (PCR) Parainfluenza 2 (PCR) Parainfluenza 3 (PCR) Parainfluenza 4 (PCR) RSV (PCR) Entero/Rhino (PCR) Assessment & Plan Assessment & Plan narrative: 1. Acute respiratory failure with hypoxia. Present on admission and active. -Etiology unclear. CT of the chest negative for PE. The patient denies any smoking or diagnosed with COPD. -Continue oxygen supplement to keep her oxygenation greater than 92% -Albuterol as needed -Start prednisone 40 mg daily -consider ECHO if she fails to wean. Acute kidney injury. Present on admission and active. -Presented with creatinine 1.27. Baseline around 0.7?0.9. -Will start IV fluids -BMP daily -Avoid potentially nephrotoxic medications -Adjust medications according to GFR. Hyperlipidemia. Present on admission and active. -Restart Lipitor. GERD. Present on admission and active. -Restart Protonix. CAD. Present on admission and active. -Restart aspirin, statins CHF. Restart aspirin, statins. Hold Lasix for now Gout. Restart allopurinol. DNR based on previous documentation. Time Spent With Patient Time with patient: 30 to 49 minutes with 50% spent counseling/coordinating care Quality VTE Deep Vein Thrombosis/Pulmonary Embolism Present on Admission: No MIPS - Admit I confirm the patient?s Advance Care Plan is present, Code status is documented, Surrogate decision maker is in patient?s record [If Yes, STOP here]: Yes [facility] - Meds 'Current medications' to include all prescriptions, [id number] products, herbals, cannabis/cannabidiol products, and vitamin/mineral/dietary (nutritional) supplements. I have utilized all available resources to obtain, update, or review the patient?s current medications. [If Yes, STOP here]: Yes
[2023-11-03] MEDS: ATORVASTATIN 20 MG TABLET 40 MG PO (09:23)
[2023-11-03] MEDS: allopurinoL 100 MG TABLET PO (09:23)
[2023-11-03] MEDS: ASPIRIN EC 81 MG TABLET PO (09:23)
[2023-11-03] MEDS: predniSONE 20 MG TABLET 40 MG PO (09:23)
[2023-11-03] MEDS: PANTOPRAZOLE DR 40 MG TABLET PO (09:23)
--- NOTE | 2023-11-03 10:51 | PC.NURSE ---
Pt arousable, responsive to commands, conversant. Spoke with son who will be in to see Pt today. Pt restful and comfortable.
--- NOTE | 2023-11-03 11:33 | CM.DANOTE ---
Addendum entered by Jalyn Delacruz R.N. 11/03/23 12:51: There is a POLST form scanned in that states full code. Called over at [facility] and left a message to see if they have a POLST form on file. Will see if Dr. Figueroa can fill out a new POLST, harinder is supposed to be here today. Original Note: DCP: Case received, EMR reviewed. Due to patient's memory issues, contacted son, Adrian, as well as her adult family home to get further information regarding patient's baseline care needs. Introduced self and role to son, Adrian, over the phone. DCP assessment was completed based upon current information available. Patient is an 88 year old female who admitted early this morning to the care of the hospitalist team. PCP: Dr. Garcia. Payer: confirmed: [facility]. Patient came to the hospital via ambulance secondary to having increased confusion, weakness, and tremors. Notes indicate that patient had been battling a UTI for about 2 weeks, was started on Bactrim and Keflex. Patient resides in an adult family home in [facility]. Patent is currently bed bound. Patient is also under Palliative care through [facility]. Son, Adrian, is very involved and supportive. Upon arrival, patient had required some oxygen, not at her baseline, was hypoxic, in the 80s, and was currently placed on 2 liters of oxygen. Staff and son had noted increased confusion, repeating constant conversations. Patient was admitted with acute metabolic encephalopathy, hypoxia, JENNY. Spoke with patient's son, Adrian. He did give some history regarding patient, who has had cardiac issues. Patient had been to [facility] in the past, ended up going to an adult family home. Patient is bed bound, due to patient's multiple admissions. Patient is currently DNR, limited interventions. Spoke to Cecilia at [facility]. Their phone number is: [phone]. The laundrette owner is [employer]. Cecilia indicated that they do not have a fax machine, will need to send paperwork with patient to return there. Will also need to update [facility]. P: DCP to continue to follow. Confirmed that she is inpatient, may be here for a couple of days, plan is to return to facility, most likely will need BLS services. Jalyn Delacruz RN/[employer] Discharge Planning/Care Management CM Discharge Assessment Start: 11/03/23 11:13 Freq: Status: Active Protocol: Document 11/03/23 11:27 (Rec: 11/03/23 11:33 [id number]) Discharge Planning Assessment Assigned Telephone Plant Power Operator Jalyn Delacruz RN/[employer] Advance Directives? Yes: POLST form in chart Advance Directives on File No History Provided By Medical Record Prior Living Arrangements Adult Family Home Household Members other Type of transporation used prior to Relies on Others admit Willing to Return to Facility? Yes Independent with ADL's No Is patient alert and oriented? No DME Already Rented / Owned Hospital Bed,Wheelchair Comment Patient resides at an adult group family home, [facility], and is currently bed bound. Comment Back to her adult family home on palliative care services. Barriers to Discharge No Comment Will need BLS for transport, since patient is bed bound. Discharge Plan Adult Family [facility] Transportation Arrangement Patient is under palliative care with [facility], will need [facility] for transport. Referrals Initiated None needed If patient plan is SNF: Has PASSR been Yes: Date/Facility name not completed? yet completed Whiteboard Updated in Patient Room with Yes name and ext. # of Telephone Plant Power Operator Review Status In Process Next Review Type Continued Stay Review
--- NOTE | 2023-11-03 14:02 | PT-IP ANOTE ---
PT eval order received. EMR reviewed. per EMR, pt is bed bound. talked to oil field caser and stated that pt lives at [facility] home, bed bound and just started with palliative care. Talked to pt and confirmed that she is bed bound and if they get her out of the bed, they uses a nilda machine. Pt is at PLOF and no PT eval indicated. Informed hospitalist and agreed to d/c PT eval order. also informed oil field caser and pt regarding discharging PT eval order.
[2023-11-03] MEDS: ATORVASTATIN 20 MG TABLET PO (17:56)
[2023-11-03] MEDS: MEMANTINE HCL 5 MG TABLET PO (17:56)
[2023-11-03] MEDS: SENNOSIDES 8.6 MG TABLET PO (17:56)
[2023-11-03] MEDS: OFLOXACIN 0.3% OPHTH 5 ML 1 DROPS EYE-LEFT ×2 (17:56→20:34)
[2023-11-03 20:18] LABS: Urine Volume 10mL (spun)
[2023-11-03 20:19] LABS: Bacteria Urine None Seen; Culture Indicated Urine Cult Not Indicated; RBC Urine None Seen (0-5/HPF); Squamous Epithelial Cell Urine 0-1 /HPF (0-5/HPF); WBC Urine None Seen (0-5/HPF)
[2023-11-03] MEDS: APIXABAN 5 MG TABLET PO (20:33)
[2023-11-04] VITALS: BP 155/62; PULSE 106; RESP 18; TEMP 36.4; O2SAT 96
[2023-11-04] MEDS: SODIUM CHLORIDE 0.9% 1,000 ML 100 ML IV (05:45)
[2023-11-04 05:46] VITALS: BP 143/69; PULSE 104; RESP 17; TEMP 36.4; O2SAT 95
[2023-11-04 08:00] VITALS: BP 160/64; PULSE 100; RESP 16; TEMP 36.3; O2SAT 98
[2023-11-04 08:05] LABS: Alanine Aminotransferase 20 IU/L (<35); Albumin 3.3 g/dL (3.5-5.0); Alkaline Phosphatase 122 U/L (38-126); Aspartate Aminotransferase 32 IU/L (14-36); BUN Creatinine Ratio 14.1 (6-22); Bilirubin Total 0.5 mg/dL (0.2-1.3); Blood Urea Nitrogen 14 mg/dL (7-17); Calcium 9.5 mg/dL (8.4-10.2); Carbon Dioxide 29 mmol/L (22-32); Chloride 107 mmol/L (98-107); Estimated Glomerular Filt Rate 55 mL/min (>60); Globulin 3.2 g/dL (1.7-4.1); Glucose 73 mg/dL (80-110); HEMOLYSIS < 15 (0-50); Magnesium 1.6 mg/dL (1.6-2.3); Potassium 4.3 mmol/L (3.4-5.1); Sodium 139 mmol/L (137-145); Total Protein 6.5 g/dL (6.3-8.2)
[2023-11-04 08:39] VITALS: O2SAT 96
[2023-11-04] MEDS: predniSONE 20 MG TABLET 40 MG PO (09:45)
[2023-11-04] MEDS: allopurinoL 100 MG TABLET PO (09:45)
[2023-11-04] MEDS: FLUoxetine 10 MG CAPSULE PO (09:45)
[2023-11-04] MEDS: PANTOPRAZOLE DR 40 MG TABLET PO (09:45)
[2023-11-04] MEDS: METOPROLOL ER 25 MG TABLET 12.5 MG PO (09:45)
[2023-11-04] MEDS: APIXABAN 5 MG TABLET PO (09:45)
[2023-11-04] MEDS: ASPIRIN EC 81 MG TABLET PO (09:46)
[2023-11-04] MEDS: ATORVASTATIN 20 MG TABLET 40 MG PO (09:46)
[2023-11-04] MEDS: OFLOXACIN 0.3% OPHTH 5 ML 1 DROPS EYE-LEFT ×2 (09:47→13:24)
--- NOTE | 2023-11-04 10:15 | PC.NURSE ---
Addendum entered by Noa Clements R.N. 11/04/23 13:36: pt repositioned for lunch, noted pt has less tremors and encouraged he to try feeding herself with prep slow and steady, remains on ra 94 no distress Original Note: Pt alert and oriented to self, confused to place, date and situation. Hallucinating by seeing bugs on pillows see those bugs Royer squishing them calm and coop, refused breakfast, 2 person assist in bed, bed alarmed call light within reach.
--- NOTE | 2023-11-04 13:01 | CM.DPC ---
Addendum entered by RODOLFO Teran 11/04/23 14:39: ADD: BOB faxed scripts, med list and discharge summary to [facility] for review to follow tomorrow 11/05/23. BF Original Note: DCP Discharge [facility] Per MD, pt remains medically stable to d/c back to her [facility] today with ongoing Palliative Care and in agreement pt is bedbound and will need stretcher transport for safe discharge due to pt's lack of mobility and confusion/hallucinations. BOB called pt's son and explained role and he confirms he is currently at the [facility] that the pt resides [facility] and in agreement with pt discharging back to that facility today and staff on the phone as well and also confirm they can accept pt back today. Requesting the d/c summary and med list be sent to [facility] as they fill pt's Rx at baseline and worst case scenario is they get the meds filled at [facility] if needed. Son and facility in agreement that stretcher transport needed. BLS form completed and called [facility] and scheduled BLS for 1520 today and documentation attached to BLS form and placed on chart. BOB updated [facility] on [facility] of time of transport and confirmed address is [address] [place] [address]. BOB updated RN, MD, multiple needle stitcher and pt bedside and pt remains agreeable and preference is to go back to her [facility] today. Plan: Patient to d/c back to [facility] today via [facility] 1520 and SW to send d/c packet with pt and also to fax [facility] when discharge pwk completed today. RODOLFO Teran
--- NOTE | 2023-11-04 14:19 | PM.DS.1 ---
History of Present Illness History of Present Illness Chief complaint: UTI x2 weeks Narrative: From night doctor: 88 years old female with history of hypertension, hyperlipidemia, GERD, CHF, CVA, CAD, atrial fibrillation not on any anticoagulation therapy, pacemaker presented to the ER with increased confusion and shaking. The patient was seen in the ED 2 weeks ago for UTI and was sent home on Bactrim and Keflex. She started having health decline last May and now involved in palliative care. Lives in [place] [facility]. The patient's son stated her shaking is new over the last couple of days and unable to eat due to severe shaking. The patient is bedbound and unable to walk due to generalized weakness. In the ED she was found to be hypoxic requiring 2 L of oxygen. The patient is poor historian. Laboratory shows WBC 6.8, H&H 11/33.3, sodium 133, potassium 4.3, creatinine 1.27, blood sugar 100. Respiratory viral panel negative, UA negative, chest x-ray negative. CT of the head unremarkable. CTA of the chest no acute findings. In the ER she was given fluid bolus, Zofran. The patient notes that she has had more shaking of her arms recently. She denies any confusion today. She also denies any nausea, or abdominal pain. She did eat breakfast, but did not have lunch. Discharge Providers Provider Date of admission: 11/03/23 01:56 Discharge Date: 11/04/23 Primary care physician: Lala Foster MD Consults: 11/03/23 02:00 Consult to Discharge Planning Routine Comment: 11/03/23 02:01 Consult to Occupational Therapy Evaluate & Treat Comment: Physician Instructions: Evaluate and treat Consult to Physical Therapy Evaluate & Treat Comment: Physician Instructions: Evaluate and Treat Discharge provider: Alexander Figueroa MD Summary Hospital Course Discharge Diagnosis: 1. Acute respiratory failure with hypoxia. Present on admission and active. -Etiology likely atelectasis. CTA negative for infiltrate, volume overload, or pulmonary embolism. 2. Acute kidney injury. Present on admission and active. -Presented with creatinine 1.27. Baseline around 0.7?0.9. 3. Hyperlipidemia. Present on admission and active. -Restart Lipitor. 4. GERD. Present on admission and active. -Restart Protonix. 5. CAD. Present on admission and active. -Restart aspirin, statins 6. CHF. Restart aspirin, statins. Hold Lasix for now 7. Gout. Restart allopurinol. 8. Possible persistent left eye conjunctivitis, present on admission and active. 9. Acute on chronic left shoulder pain consistent with probable rotator cuff injury, present on admission and active. 10. Probable depression as noted by son, present on admission and active. DNR based on previous documentation. Hospital Course: The patient was admitted with a concern for shaking arms and legs. I had a long family discussion with son and [id number] as well as the patient. She is currently bed-bound at a [place] [facility]. She is DNR. Palliative Care is currently following the patient. She still remains on several medications including Eliquis. The patient has evidence of some cognitive dysfunction. She did complain of left shoulder pain it is unclear if this is worsened baseline. There has been no report of recent falls. During her family conference were reviewed her findings of hypoxia which I believe relate to atelectasis from her bed-bound status as well as mild JENNY and left shoulder pain. The idea of palliative care was discussed in great detail with the implications of in acceptance of making the patient comfortable and and not necessarily going back and forth to doctors and hospitals and having imaging studies and so on. We talked for about 40 minutes and ultimately the patient's son did say that this really is congruent with her goals and no further diagnostics were pursued at the hospital. The patient will be returned back to her [place] [facility]. The patient's son did have a conversation with the [place] [facility] and we will be talking with palliative Care to come up with strategies that may assist in making her comfortable if she has an episode of duress without necessarily engage in the EMS system or a visit to the hospital. In addition, the patient started Cymbalta 3 weeks prior to presentation. The son believes this relates to her jerking. This was stopped. He did request starting a new medication so we will start Zoloft at a very low and palliative care can follow up with this. She also did have evidence of some possible left eye conjunctivitis and we will treat this with eyedrops for an additional week or so. Status at Discharge Cognitive/behavioral status at discharge: confused Functional status at discharge: bed bound Overall status at discharge: patient is progressing back to baseline Time Spent with Patient Time spent: Greater than 30 minutes Exam Vital Signs (past 8 hours): - 11/04/23 08:00 11/04/23 08:39 Temperature 97.3 F L Pulse Rate 100 H Respiratory Rate 16 Blood Pressure 160/64 H Pulse Oximetry 98 96 Oxygen Delivery Method Nasal Cannula Oxygen Flow Rate 2 Fraction of Inspired Oxygen 28 SaO2/FiO2 Ratio 342 Oxygen Delivery Method Nasal Cannula Oxygen Flow Rate 2 Narrative Exam Narrative: No acute distress, normal speech. Chronically ill. Lungs are clear with normal rate and effort. Heart is regular without murmur. Abdomen is non tender. No leg edema. Objective Imaging Multiple studies:: Radiologist's impression: Head CT: No acute intracranial pathology. Chest CTA: No pulmonary embolus. No acute cardiopulmonary process. Dilated main pulmonary artery, suggestive of pulmonary hypertension. Moderate to large hiatal hernia. Atherosclerotic vascular calcifications with moderate coronary artery calcifications. Diverticulosis without evidence of acute diverticulitis. CXR: Rotated exam which limits evaluation. No definite acute abnormalities are seen. Labs 11/02/23 20:50 11/04/23 07:41 Labs: Laboratory Results - last 24 hr 11/03/23 11/04/23 19:23 07:41 Sodium 139 Potassium 4.3 Chloride 107 Carbon Dioxide 29 BUN 14 Creatinine 0.99 Estimated GFR 55 L BUN/Creatinine Ratio 14.1 Glucose 73 L Calcium 9.5 Magnesium 1.6 Total Bilirubin 0.5 AST 32 ALT 20 Alkaline Phosphatase 122 Total Protein 6.5 Albumin 3.3 L Globulin 3.2 Albumin/Globulin Ratio 1.0 Urine RBC None seen Urine WBC None seen Ur Squamous Epith Cells 0-1 /hpf Urine Bacteria None seen Ur Culture Indicated? Cult not indicated Vol Urine Centrifuged 10ml (spun) [facility] Social History household members: other Smoking Status: Never smoker alcohol intake: never Discharge Assessment & Plan Assessment and Plan Assessment: 1. Acute respiratory failure with hypoxia. Present on admission and active. -Etiology likely atelectasis. CTA negative for infiltrate, volume overload, or pulmonary embolism. 2. Acute kidney injury. Present on admission and active. -Presented with creatinine 1.27. Baseline around 0.7?0.9. 3. Hyperlipidemia. Present on admission and active. -Restart Lipitor. 4. GERD. Present on admission and active. -Restart Protonix. 5. CAD. Present on admission and active. -Restart aspirin, statins 6. CHF. Restart aspirin, statins. Hold Lasix for now 7. Gout. Restart allopurinol. 8. Possible persistent left eye conjunctivitis, present on admission and active. 9. Acute on chronic left shoulder pain consistent with probable rotator cuff injury, present on admission and active. 10. Probable depression as noted by son, present on admission and active. DNR based on previous documentation. Plan of Treatment: Discharge back to her facility with new prescription for Zoloft 20 mg daily, stop duloxetine. Eyedrops for left eye for 1 week. Encourage palliative Care to come up with strategies to prevent EMS engagement and trips to the hospital. Consider stopping medication such as atorvastatin and Eliquis. Discharge Plan Discharge Plan Patient Disposition: Home Provider Discharge Comment: Stable for discharge back to her [place] [facility]. Palliative care is the goal. Focused on no further diagnostics and interventions meant to improve comfort. Based on a very long family meeting with son, [id number] and patient on November 02. Discharge orders & Medications Prescriptions: New sertraline [Zoloft] 25 mg tablet 25 mg PO DAILY Qty: 30 0RF ofloxacin 0.3 % Drops 1 drops EYE-LEFT QID Qty: 10 0RF Continued allopurinol 100 mg Tablet 100 mg PO DAILY furosemide 20 mg Tablet 20 mg PO DAILY Rx Instructions: Take daily in the afternoon aspirin 81 mg Capsule 81 mg PO DAILY pantoprazole [Protonix] 40 mg tablet,delayed release (DR/EC) 40 mg PO DAILY Qty: 30 0RF metoprolol succinate 25 mg tablet extended release 24 hr 12.5 mg PO DAILY sennosides 8.6 mg tablet 8.6 mg PO QPM atorvastatin 20 mg tablet 20 mg PO QPM memantine 5 mg tablet 5 mg PO ONCE PM Eliquis 5 mg tablet 5 mg PO BID Discontinued duloxetine 20 mg capsule,delayed release(DR/EC) 20 mg PO DAILY Medication counseling provided by Pharmacist: No Follow up/Referrals: Lala Garcia MD [Primary Care Provider] - Diet/Activity/Treatments Diet: Diet as Tolerated Visit Report/Discharge Packet Stand Alone Forms: Congestive Heart Failure, Patient Portal/API Discharge Data Primary Care Provider: Lala Garcia Attending Provider: Toby Velez Admit Date/Time: 11/03/23 01:56 Quality VTE Deep Vein Thrombosis/Pulmonary Embolism Present on Admission: No
== END 2023-11-04 15:45 | disposition home or self-care (01) | DRG 205 ==
LOC: ED 11-03 01:56 → AC 11-03 10:33
PROVIDERS: Hospitalist; Admitting Provider Internal Medicine; Emergency Provider Emergency Medicine; PCP Family Medicine; Referring Provider Emergency Medicine; Visit Provider Internal Medicine
DX: J98.11 Atelectasis (principal); J96.01 Acute respiratory failure with hypoxia; E78.5 Hyperlipidemia, unspecified; K21.9 Gastro-esophageal reflux disease without esophagitis; I25.10 Atherosclerotic heart disease of native coronary artery without angina pectoris; M10.9 Gout, unspecified; I50.9 Heart failure, unspecified; H10.89 Other conjunctivitis; S46.002A Unspecified injury of muscle(s) and tendon(s) of the rotator cuff of left shoulder, initial encounter; F32.A Depression, unspecified; I11.0 Hypertensive heart disease with heart failure; X58.XXXA Exposure to other specified factors, initial encounter; Z86.73 Personal history of transient ischemic attack (TIA), and cerebral infarction without residual deficits; Z79.01 Long term (current) use of anticoagulants; Z66 Do not resuscitate; Z95.0 Presence of cardiac pacemaker; Z11.52 Encounter for screening for COVID-19
CPT/HCPCS: 36415; 51701; 70450; 71045; 71275; 80053; 81003; 81015; 83605; 83690; 83735; 83880; 84145; 84443; 85025; 85610; 85730; 87040; 87633; 94762; 99285; G0378; Q9967